=== PATIENT | female | born 1975 | race Asian ===

== ENCOUNTER 2021-04-01 12:01 | Emergency (ER) | payer OTHER, BC ==
[~2021-04-01] VITALS: Ht 154.9 cm; Wt 97.1 kg
[2021-04-01] MEDS ORDERED: LOSA50 PO (12:56)
[2021-04-01] MEDS ORDERED: FURO80 PO (12:57)
[2021-04-01 13:48] LABS: BASOPHILS ABSOLUTE AUTO 0.06 K/mm3 (0.00-0.23); BASOPHILS PERCENT AUTO 1 % (0-2); EOSINOPHILS ABSOLUTE AUTO 0.14 K/mm3 (0.00-0.68); EOSINOPHILS PERCENT AUTO 3 % (0-6); Hematocrit 35.1 % (33.0-51.0); Hemoglobin 11.1 g/dL (11.5-16.0); IMMATURE GRAN ABSOLUTE AUTO 0.02 K/mm3 (0.00-0.10); IMMATURE GRAN PERCENT AUTO 0 % (0-1); LYMPHOCYTES ABSOLUTE AUTO 1.25 K/mm3 (0.84-5.20); LYMPHOCYTES PERCENT AUTO 24 % (21-46); MONOCYTES ABSOLUTE AUTO 0.55 K/mm3 (0.16-1.47); MONOCYTES PERCENT AUTO 11 % (4-13); Mean Corpuscular HGB 26.1 pg (26.0-34.0); Mean Corpuscular HGB Conc 31.6 g/dL (31.5-36.5); Mean Corpuscular Volume 82 fL (80-100); Mean Platelet Volume 10.4 fL (9.1-12.4); NEUTROPHILS ABSOLUTE AUTO 3.13 K/mm3 (1.96-9.15); NEUTROPHILS PERCENT AUTO 61 % (41-73); Platelet Count 316 K/mm3 (150-400); RDW Coefficient Variation 15.3 % (11.7-14.2); RDW Standard Deviation 46.1 fL (35.1-46.3); Red Blood Cell Count 4.26 M/mm3 (3.80-5.20); White Blood Cell Count 5.15 K/mm3 (4.00-11.30)
[2021-04-01 14:10] LABS: Alanine Aminotransfer (ALT/SGP 20 U/L (12-78); Albumin, Blood 2.3 g/dL (3.4-5.0); Albumin/Globulin Ratio 0.6 (0.8-1.8); Alk Phos 83 U/L (50-136); Anion Gap 7 mmol/L (6-16); Aspartate Aminotrans (AST/SGOT 19 U/L (12-37); Bilirubin, Total 0.3 mg/dL (0.1-1.0); Blood Urea Nitrogen 35 mg/dL (8-24); Bun/Creatinine Ratio 20.7 (12.0-20.0); CO2, Blood 21 mmol/L (21-32); Calcium, Blood 7.9 mg/dL (8.5-10.1); Chloride, Blood 109 mmol/L (98-108); Creatinine, Blood 1.69 mg/dL (0.40-1.00); Globulin, Blood 3.9 g/dL (2.2-4.0); Glomerular Filtration Rate 32 (60-); Glucose, Blood 235 mg/dL (70-99); Potassium, Blood 4.1 mmol/L (3.5-5.5); Sodium, Blood 137 mmol/L (136-145); Total Protein, Blood 6.2 g/dL (6.4-8.2); Troponin I <0.015 ng/mL (0.000-0.040)
[2021-04-01] MEDS ORDERED: LOSA25 PO (14:28)
== END 2021-04-01 15:24 | disposition home or self-care (01) ==
LOC: ER 12:01
PROVIDERS: Student in an Organized Health Care Education/Training Program
DX: R07.89 Other chest pain (principal); I12.9 Hypertensive chronic kidney disease with stage 1 through stage 4 chronic kidney disease, or unspecified chronic kidney disease; E11.22 Type 2 diabetes mellitus with diabetic chronic kidney disease; N18.9 Chronic kidney disease, unspecified; I50.9 Heart failure, unspecified; Z79.899 Other long term (current) drug therapy; V49.40XA Driver injured in collision with unspecified motor vehicles in traffic accident, initial encounter
CPT/HCPCS: 71046; 72040; 80053; 84484; 85025; 93005; 93010; 99284-25; A9270

== ENCOUNTER 2021-06-26 18:30 | Observation (INO) | payer BC ==
[~2021-06-26] VITALS: Ht 160 cm; Wt 104.3 kg
[~2021-06-26 18:30] MED LIST: FURO40 PO; LOSA25 PO; LOSA50 PO
[2021-06-26 19:10] LABS: BASOPHILS ABSOLUTE AUTO 0.02 K/mm3 (0.00-0.23); BASOPHILS PERCENT AUTO 0 % (0-2); EOSINOPHILS ABSOLUTE AUTO 0.04 K/mm3 (0.00-0.68); EOSINOPHILS PERCENT AUTO 1 % (0-6); Hematocrit 34.6 % (33.0-51.0); Hemoglobin 11.4 g/dL (11.5-16.0); IMMATURE GRAN ABSOLUTE AUTO 0.03 K/mm3 (0.00-0.10); IMMATURE GRAN PERCENT AUTO 0 % (0-1); LYMPHOCYTES ABSOLUTE AUTO 0.61 K/mm3 (0.84-5.20); LYMPHOCYTES PERCENT AUTO 8 % (21-46); MONOCYTES ABSOLUTE AUTO 0.33 K/mm3 (0.16-1.47); MONOCYTES PERCENT AUTO 4 % (4-13); Mean Corpuscular HGB 26.2 pg (26.0-34.0); Mean Corpuscular HGB Conc 32.9 g/dL (31.5-36.5); Mean Corpuscular Volume 80 fL (80-100); Mean Platelet Volume 10.7 fL (9.1-12.4); NEUTROPHILS ABSOLUTE AUTO 7.12 K/mm3 (1.96-9.15); NEUTROPHILS PERCENT AUTO 87 % (41-73); Platelet Count 398 K/mm3 (150-400); RDW Coefficient Variation 15.3 % (11.7-14.2); RDW Standard Deviation 44.3 fL (35.1-46.3); Red Blood Cell Count 4.35 M/mm3 (3.80-5.20); White Blood Cell Count 8.15 K/mm3 (4.00-11.30)
[2021-06-26 19:43] LABS: Albumin, Blood 2.3 g/dL (3.4-5.0); Albumin/Globulin Ratio 0.6 (0.8-1.8); Bilirubin, Total 0.1 mg/dL (0.1-1.0); Bun/Creatinine Ratio 30.4 (12.0-20.0); Calcium, Blood 8.1 mg/dL (8.5-10.1); Creatinine, Blood 1.81 mg/dL (0.40-1.00); Potassium, Blood 4.4 mmol/L (3.5-5.5); Total Protein, Blood 6.3 g/dL (6.4-8.2)
[2021-06-26] MEDS ORDERED: Aspir 8181 MG PO (20:03)
[2021-06-26] MEDS ORDERED: GLIMEPIRIDE2 M2 PO (20:03)
[2021-06-26] MEDS ORDERED: TRULICITY0.75 MG/01 (20:04)
[2021-06-26] MEDS ORDERED: AMLODIPINE BESY10 MG PO (20:05)
[2021-06-26 21:40] LABS: Influenza A, PCR NEGATIVE (NEGATIVE); Influenza B, PCR NEGATIVE (NEGATIVE); Resp Syncytial Virus, PCR NEGATIVE (NEGATIVE)
[2021-06-26 21:51] LABS: SARS-Cov-2 (COVID-19) PCR, MMC POSITIVE (NEGATIVE)
--- NOTE | 2021-06-26 22:15 | NUR ---
ARRIVED TO ICU AND ACCEPTED INTO ROOM 5. ADMISSION ASSESSMENT COMPLETE. VERY ANXIOUS, CALMS WITH NURSE REASSURANCE. ALL EXPECTED PROCESSES AND EXPLAINTION OF PLANS EXPLAINED BEFORE STARTING.
[2021-06-27 03:57] LABS: Bun/Creatinine Ratio 27.2 (12.0-20.0); Calcium, Blood 8.2 mg/dL (8.5-10.1); Creatinine, Blood 1.84 mg/dL (0.40-1.00); Potassium, Blood 4.9 mmol/L (3.5-5.5)
--- NOTE | 2021-06-27 06:38 | NUR ---
Rested through out night. blood sugar remained stable with D10 infusion. anxiety better this am than when first arrived, up to toilet with assist. stable with ambulation, needs assist due to limited vision.
--- NOTE | 2021-06-27 08:56 | NUR ---
AM NOTE... ASSUMED CARE OF PT AT 0700, PT IS A&Ox4 AND SBA IN THE ROOM. THE PT IS ON A D10 GTT RUNNING AT 100MLS/HR WITH Q1 HR CBGs THE LAST 4 HRS THE PT'S CBGs HAVE BEEN IN THE 130'S. THE PT'S VS ARE STABLE AT THIS TIME. THE PT DENIES ANY SOB OR CHEST PAIN AND IS ON RA. L/S CLEAR T/O DIM IN THE BASES. THE PT IS IND IN THE BED AND WITH ADLs. CALL LIGHT IN REACH WILL CONTINUE TO MONITOR.
--- NOTE | 2021-06-27 14:43 | NUR ---
PT UPDATE... D10 DRIP STOPPED PER PROVIDER'S ORDER. WILL CONTINUE TO MONITOR.
--- NOTE | 2021-06-27 18:18 | NUR ---
SHIFT SUMMARY... NO ACUTE NEGATIVE CHANGES NOTED THIS SHIFT. THE PT HAS BEEN HYPERTENSIVE AND MEDICATED x2 PER EMAR WITH GOOD RESULTS, THE PT'S OTHER VS ARE STABLE. THE D10 DRIP WAS STOPPED PER ORDERS AND CBGs HAVE BEEN STABLE. PER PROVIDER CONTINUE TO CHECK THE CBGs Q4 HRS UNTIL 2200 THEN IF STABLE GO TO Q6 CBG CHECKS. THE PT HAS BEEN UP TO THE TOILET TO VOID WITH MIN ASSIST. SHE HAS BEEN EATING HER MEALS AND DENIES ANY COVID SYMPTOMS. CALL LIGHT IN REACH WILL CONTINUE TO MONITOR UNTIL REPORT IS GIVEN TO ONCOMING RN.
--- NOTE | 2021-06-27 20:00 | NUR ---
Assumed care after report recv'd Assessment complete. Blood pressure elevated, will give pm meds and recheck. anxiety better this evening. Denies needs or complaints at this time.
--- NOTE | 2021-06-27 21:15 | NUR ---
Blood sugar 116. Advised patient will be changing to every 6 hours for blood sugar checks. Educated on calling for nurse if any hypoglycemic systems and will check as needed. Verbalizes understanding. Denies needs at this time.
--- NOTE | 2021-06-27 21:48 | NUR ---
REPORT RECIEVED FROM JOVITA COMPUTATIONAL SCIENTIST AND AWAITING PT T/F TO ROOM 332.
--- NOTE | 2021-06-27 21:55 | NUR ---
Report given to Leydi LAWS, transferred via wheelchair to room 332.
--- NOTE | 2021-06-27 22:05 | NUR ---
PT T/F'D TO ROOM 332 AT 2200 VIA W/C. SHE'S A/OX4, IS SBA OOB AND WAS ORIENTED TO ROOM AND CALL SYSTEM. VSS/AFEBRILE. PT DENIED NEEDS/COMPLAINTS AND IS SITTING IN BED WATCHING TV AT THIS TIME. Q6H CBG'S IN PROGRESS. WCTM.
--- NOTE | 2021-06-28 03:34 | NUR ---
SUMMARY: PT T/F'D FROM ICU AT 2200. THIS RN AGREED TO QUALITY ASSURANCE PRACTICE MANAGER'S NOCTE SHIFT ASSESSMENT FINDINGS. SHE'S A/OX4, SPECIFIES NEEDS AND IS SBA OOB. TAB PLACED TO CALL BUTTON D/T VISUAL DEFICITS SLIGHTLY WORSE FROM BASELINE R/T CURRENT ILLNESS. Q6H CBG MONITORING IN PROGRESS (LAST WAS 107) AND PT SEEMS STABLE AT THIS TIME. SHE'S AWARE TO ALERT STAFF IF S/S HYPOGLYCEMIA. PT REMAINS IN COVID ISO D/T TESTING (+) IN ER DESPITE BEING ASYMPTOMATIC OF DISTRESS. SPO2 WNL ON RA, LS CLEAR T/O AND SLIGHT CONGESTION OBSERVED. SHE'S POSSIBLE D/C TOMORROW IF CBG'S REMAIN WNL, POISON CONTROL IS FOLLOWING PT UNTIL D/C. SEE NURSING NOTIFICATION RX FOR DETAILS IF HYPOGLYCEMIA REMAINS AN ISSUE. PT DENIED COMPLAINTS. NO ACUTE CHANGES. VSS/AFEBRILE. WCTM AND REPORT TO DAY RN.
[2021-06-28 06:34] LABS: Albumin, Blood 1.9 g/dL (3.4-5.0); Anion Gap 7 mmol/L (6-16); Blood Urea Nitrogen 48 mg/dL (8-24); Bun/Creatinine Ratio 21.9 (12.0-20.0); CO2, Blood 18 mmol/L (21-32); Calcium, Blood 8.5 mg/dL (8.5-10.1); Chloride, Blood 113 mmol/L (98-108); Creatinine, Blood 2.19 mg/dL (0.40-1.00); Glomerular Filtration Rate 24 (60-); Glucose, Blood 99 mg/dL (70-99); Phosphorus, Blood 3.8 mg/dL (2.5-4.9); Potassium, Blood 4.8 mmol/L (3.5-5.5); Sodium, Blood 138 mmol/L (136-145)
--- NOTE | 2021-06-28 19:08 | NUR ---
PATIENT A/O X4. AMBULATES WELL IN ROOM. BG HAS BEEN IN THE 100'S FOR SHIFT.LAST BLOOD GLUCOSE CHECK 127. SPOKE WITH POISON CONTROL COUPLE TIMES ABOUT THIS PATIENT.POSSIBLE DISCHARGE TOMORROW IF BG REMAINS WNL
--- NOTE | 2021-06-29 04:46 | NUR ---
PT WAS A/O X4, STABLE VITAL SIGNS, NO ACUTE CHANGES. PT DENIES ANY PAIN
[2021-06-29 09:34] LABS: Bun/Creatinine Ratio 19.6 (12.0-20.0); Calcium, Blood 8.7 mg/dL (8.5-10.1); Creatinine, Blood 1.99 mg/dL (0.40-1.00); Potassium, Blood 4.7 mmol/L (3.5-5.5)
[2021-06-29] MEDS ORDERED: ATOR40TA PO (14:03)
[2021-06-29] MEDS ORDERED: ASCO500 PO (14:03)
[2021-06-29] MEDS ORDERED: ZINC220 PO (14:04)
[2021-06-29] MEDS ORDERED: Vitamin D1000 UNI1 PO (14:04)
--- NOTE | 2021-06-29 14:47 | NUR ---
I met with the patient in her room this morning to discuss applying for OHP. Patient agreed to apply as her BCBS coverage will be ending soon. We did the OHP application and it is pending due to needing citizenship verification. Pt is aware of this and acknowledges that she needs to bring her permanent residency visa into [facility] for follow-up. Per chart review with Dr. Carrasquillo, pt is appropriate for discharge and pt denies barriers to discharge. Pt will be calling her boyfriend to help with discharge transportation. A hospital follow-up is already scheduled with Dr. Carrasquillo on July 06 @ 02:00PM.
--- NOTE | 2021-06-29 18:01 | NUR ---
PT A/O X4. NO ACUTE CHANGES DURING SHIFT. PT AMBULATES WELL TO THE BATHROOM. DENIES PAIN. ALL MEDS GIVEN PER SEP. PT HAS BEEN DISCHARGED. DISCHARGE INSTRUCTIONS GIVEN. REVIEWED ALL MEDS INCLUDING NEW ONES WITH PT, COMFIRMED PHARMACY WITH PATIENT.
== END 2021-06-29 16:50 | disposition home or self-care (01) ==
LOC: ER 18:30 → ICUE 18:31 → ICUW 18:31 → ICUE 21:49 → MEDS 06-27 22:00
PROVIDERS: Emergency Medicine; Internal Medicine; Physician Assistant; ADMIT Internal Medicine
DX: E11.649 Type 2 diabetes mellitus with hypoglycemia without coma (principal); U07.1 COVID-19; I16.0 Hypertensive urgency; I13.0 Hypertensive heart and chronic kidney disease with heart failure and stage 1 through stage 4 chronic kidney disease, or unspecified chronic kidney disease; N18.4 Chronic kidney disease, stage 4 (severe); E11.22 Type 2 diabetes mellitus with diabetic chronic kidney disease; I50.30 Unspecified diastolic (congestive) heart failure; N17.9 Acute kidney failure, unspecified; H35.30 Unspecified macular degeneration; D21.9 Benign neoplasm of connective and other soft tissue, unspecified; E66.01 Morbid (severe) obesity due to excess calories; Z68.41 Body mass index [BMI] 40.0-44.9, adult; Z79.84 Long term (current) use of oral hypoglycemic drugs; Z87.891 Personal history of nicotine dependence
CPT/HCPCS: 0241U; 36415; 80048; 80053; 80069; 82947; 85025; 90686; 96372; 96374; 96375; 99284; A9270; G0008; G0378; J0360; J1644; J2354; J2405

== ENCOUNTER → 2021-07-13 | Outpatient (CLI) | payer BC, OTHER ==
[~2021-07-13] MED LIST changes: +AMLODIPINE BESY10 MG PO; +ASCO500 PO; +ATOR40TA PO; +Aspir 8181 MG PO; +GLIMEPIRIDE2 M2 PO; +TRULICITY0.75 MG/01; +Vitamin D1000 UNI1 PO; +ZINC220 PO
== END | disposition home or self-care (01) ==
LOC: LAB SHORT 15:09
DX: L02.91 Cutaneous abscess, unspecified (principal)
CPT/HCPCS: 87070; 87077; 87147; 87186; 87205

== ENCOUNTER → 2022-11-16 | Outpatient (CLI) | payer OTHER | END | disposition home or self-care (01) | LOC: LAB SHORT 12:50 → LAB 12:50 | DX: D51.8 Other vitamin B12 deficiency anemias (principal) | CPT/HCPCS: 82607; 82746 ==

== ENCOUNTER → 2023-02-01 | Outpatient (CLI) | payer OTHER | LOC: LAB 12:16 → LAB SHORT 12:16 | DX: N91.2 Amenorrhea, unspecified (principal) | CPT/HCPCS: 84703 ==

== ENCOUNTER → 2023-02-15 | Outpatient (CLI) | payer OTHER ==
[2023-02-15 19:20] LABS: Albumin, Blood 3.6 g/dL (3.4-5.0); Bilirubin, Total 0.3 mg/dL (0.1-1.0); Bun/Creatinine Ratio 14.3 (12.0-20.0); Calcium, Blood 10.5 mg/dL (8.5-10.1); Creatinine, Blood 5.94 mg/dL (0.40-1.00); Globulin, Blood 3.5 g/dL (2.2-4.0); Phosphorus, Blood 7.3 mg/dL (2.5-4.9); Potassium, Blood 3.3 mmol/L (3.5-5.5); Total Protein, Blood 7.1 g/dL (6.4-8.2)
== END ==
LOC: LAB SHORT 17:04 → LAB 17:04
PROVIDERS: Internal Medicine Hematology & Oncology
DX: E11.22 Type 2 diabetes mellitus with diabetic chronic kidney disease (principal); N18.4 Chronic kidney disease, stage 4 (severe); D50.0 Iron deficiency anemia secondary to blood loss (chronic)
CPT/HCPCS: 80053; 84100

== ENCOUNTER → 2023-02-21 | Outpatient (CLI) | payer OTHER | END | disposition home or self-care (01) | LOC: LAB 12:45 → LAB SHORT 12:45 | DX: E53.8 Deficiency of other specified B group vitamins (principal) | CPT/HCPCS: 82607; 82746 ==

== ENCOUNTER 2023-03-15 14:44 | Inpatient (IN) | payer OTHER ==
[~2023-03-15] VITALS: Ht 154.9 cm; Wt 92.1 kg
[~2023-03-15 14:44] MED LIST changes: +BENZ100A PO; +CALC.25 PO; +DILT180 PO; +DILT60ER PO; +Doxycycline Mo100 M1 PO; +ERGO50000 PO; +HYDRA50 PO; +RENVELA800 MG PO; +SODBIC650 PO
[2023-03-15 17:34] VITALS: BP 186/71
[2023-03-15 17:52] LABS: BASOPHILS ABSOLUTE AUTO 0.07 K/mm3 (0.00-0.23); BASOPHILS PERCENT AUTO 1 % (0-2); EOSINOPHILS ABSOLUTE AUTO 0.47 K/mm3 (0.00-0.68); EOSINOPHILS PERCENT AUTO 5 % (0-6); Hematocrit 27.5 % (33.0-51.0); Hemoglobin 9.2 g/dL (11.5-16.0); IMMATURE GRAN ABSOLUTE AUTO 0.06 K/mm3 (0.00-0.10); IMMATURE GRAN PERCENT AUTO 1 % (0-1); LYMPHOCYTES ABSOLUTE AUTO 1.06 K/mm3 (0.84-5.20); LYMPHOCYTES PERCENT AUTO 11 % (21-46); MONOCYTES ABSOLUTE AUTO 1.07 K/mm3 (0.16-1.47); MONOCYTES PERCENT AUTO 12 % (4-13); Mean Corpuscular HGB 31.2 pg (26.0-34.0); Mean Corpuscular HGB Conc 33.5 g/dL (31.5-36.5); Mean Corpuscular Volume 93 fL (80-100); Mean Platelet Volume 9.7 fL (9.1-12.4); NEUTROPHILS ABSOLUTE AUTO 6.53 K/mm3 (1.96-9.15); NEUTROPHILS PERCENT AUTO 71 % (41-73); Platelet Count 335 K/mm3 (150-400); RDW Coefficient Variation 13.7 % (11.7-14.2); RDW Standard Deviation 46.3 fL (35.1-46.3); Red Blood Cell Count 2.95 M/mm3 (3.80-5.20); White Blood Cell Count 9.26 K/mm3 (4.00-11.30)
--- NOTE | 2023-03-15 17:56 | NUR ---
ADMISSION AND SHIFT SUMMARY PATIENT ADMITTED TO MEDICAL FLOOR. PATIENT UNABLE TO GET DIALYSIS AT [facility] BECAUSE RESULTS NOT BACK RELATED TO CULTURES ON LUNG MASS. PATIENT STATES SHE HAS NOT HAD DIALYSIS SINCE DISCHARGE. PATIENT ALERT AND INTERACTIVE. POWERGLIDE PLACED ON ARRIVAL TO MEDICAL FLOOR. LABS DRAWN AND AWAITING RESULTS TO BE CALLED TO DR. GLEASON. PATIENT AMBULATING INDEPENDENTLY IN THE ROOM. VASCATH ON L CHEST WALL. PATIENT STATES THAT SHE HAS HAD HER VEIN MAPPING FOR HER SHUNT BUT DOES NOT HAVE ANYTHING SCHEDULED YET. WILL CONTACT DR GLEASON WHEN LAB RESULTS COME BACK. PATIENT HAS OCCASIONAL COUGH BUT NO SPUTUM AT THIS TIME.
[2023-03-15] MEDS ORDERED: HYDRA50 PO (18:15)
[2023-03-15] MEDS ORDERED: SEVEC800 PO (18:15)
[2023-03-15] MEDS ORDERED: ERGO50000 PO (18:16)
[2023-03-15] MEDS ORDERED: FERSU300 PO (18:16)
[2023-03-15] MEDS ORDERED: SODBIC650 PO (18:17)
[2023-03-15] MEDS ORDERED: FURO40 PO (18:17)
[2023-03-15 18:18] LABS: Magnesium, Blood 2.5 mg/dL (1.6-2.4)
[2023-03-15 18:21] LABS: Albumin, Blood 3.3 g/dL (3.4-5.0); Albumin/Globulin Ratio 0.8 (0.8-1.8); Bilirubin, Total 0.3 mg/dL (0.1-1.0); Bun/Creatinine Ratio 14.3 (12.0-20.0); Calcium, Blood 10.5 mg/dL (8.5-10.1); Creatinine, Blood 6.14 mg/dL (0.40-1.00); Globulin, Blood 4.1 g/dL (2.2-4.0); Potassium, Blood 4.2 mmol/L (3.5-5.5); Total Protein, Blood 7.4 g/dL (6.4-8.2)
[2023-03-15 18:24] LABS: Phosphorus, Blood 8.8 mg/dL (2.5-4.9)
[2023-03-15 19:42] VITALS: BP 194/60
[2023-03-16] VITALS (19 sets, daily range): BP systolic 129–193; BP diastolic 48–99
--- NOTE | 2023-03-16 04:04 | NUR ---
SHIFT SUMMARY; NO ACUTE CHANGES OVERNIGHT. THE PT IS AXO X4 AND INDEPENDENT IN THE ROOM. THE PT HAS BEEN SLEEPING FOR THE DURATION OF THE NIGHT. THE PT HAS BEEN NPO SINCE 0300 THIS AM IN PREPERATION FOR A POSSIBLE BRONCHOSCOPY. DIALYSIS IS PLANNED FOR THIS AM WELL. THE PT DENIES ANY CHEST PAIN/PRESSURE, SOB, PAIN OR N/V THIS SHIFT. CURRENTLY THE PT IS SLEEPING IN BED WITH THE BED IN THE LOWEST POSITION AND THE CALL LIGHT AT BEDSIDE. FIRE SAFETY MAINTAINED T/O THE NIGHT.
[2023-03-16 05:43] LABS: Hematocrit 24.5 % (33.0-51.0); Hemoglobin 8.2 g/dL (11.5-16.0)
[2023-03-16 05:58] LABS: Magnesium, Blood 2.2 mg/dL (1.6-2.4)
[2023-03-16 06:45] LABS: Albumin, Blood 2.8 g/dL (3.4-5.0); Anion Gap 12 mmol/L (6-16); Blood Urea Nitrogen 92 mg/dL (8-24); Bun/Creatinine Ratio 15.6 (12.0-20.0); CO2, Blood 19 mmol/L (21-32); Chloride, Blood 107 mmol/L (98-108); Creatinine, Blood 5.89 mg/dL (0.40-1.00); Glomerular Filtration Rate 8 (60-); Glucose, Blood 120 mg/dL (70-99); Phosphorus, Blood 8.6 mg/dL (2.5-4.9); Potassium, Blood 4.3 mmol/L (3.5-5.5); Sodium, Blood 138 mmol/L (136-145)
--- NOTE | 2023-03-16 16:34 | NUR ---
03/16/23 1634 Radha Kelly PRIOR TO START OF PROCEDURE History, Chart, Medications and Allergies reviewed before start of procedure.NUMBING TO THROAT DONE
--- NOTE | 2023-03-16 18:12 | NUR ---
DAYSHIFT SUMMARY Patient NPO, bronchscopy planned for the afternoon. PO meds held. Infection prevent RN instructed RN to place patient on airborne precautions to r/o TB. Dialysis done at bedside. Patient had procedure this afternoon, SBP >177, evening midodrine held. Patient tired but denies pain or nausea. Will continue plan of care, waiting for AFB to result.
[2023-03-16 19:52] LABS: Acinetobacter baumannii DNA Not Detected copy/mL (NOT DETECT); Adenovirus DNA Not Detected (NOT DETECT); Chlamydia pneumonia Not Detected (NOT DETECT); Enterobacter cloacae DNA Not Detected copy/mL (NOT DETECT); Escherichia coli DNA Not Detected copy/mL (NOT DETECT); Haemophilus influenzae DNA Not Detected copy/mL (NOT DETECT); Human Coronavirus RNA Not Detected (NOT DETECT); Human Metapneumovirus RNA Not Detected (NOT DETECT); Influenza virus A RNA Not Detected (NOT DETECT); Influenza virus B RNA Not Detected (NOT DETECT); Klebsiella aerogenes DNA Not Detected copy/mL (NOT DETECT); Klebsiella oxytoca DNA Not Detected copy/mL (NOT DETECT); Klebsiella pneumoniae DNA Not Detected copy/mL (NOT DETECT); Legionella pneumophila Not Detected (NOT DETECT); Moraxella catarrhalis DNA Not Detected copy/mL (NOT DETECT); Mycoplasma pneumoniae Not Detected (NOT DETECT); Parainfluenza virus RNA Not Detected (NOT DETECT); Proteus sp DNA Not Detected copy/mL (NOT DETECT); Pseudomonas aeruginosa DNA Not Detected copy/mL (NOT DETECT); Respiratory syncytial Vir RNA Not Detected (NOT DETECT); Rhinovirus+Enterovirus RNA Not Detected (NOT DETECT); Serratia marcescens DNA Not Detected copy/mL (NOT DETECT); Staphylococcus aureus DNA Not Detected copy/mL (NOT DETECT); Streptococcus agalactiae DNA Not Detected copy/mL (NOT DETECT); Streptococcus pneumoniae DNA Not Detected copy/mL (NOT DETECT); Streptococcus pyogenes DNA Not Detected copy/mL (NOT DETECT)
[2023-03-17] VITALS (18 sets, daily range): BP systolic 98–173; BP diastolic 52–88
[2023-03-17 05:39] LABS: Hematocrit 26.8 % (33.0-51.0)
[2023-03-17 05:59] LABS: Albumin, Blood 2.8 g/dL (3.4-5.0); Anion Gap 8 mmol/L (6-16); Blood Urea Nitrogen 57 mg/dL (8-24); Bun/Creatinine Ratio 13.3 (12.0-20.0); CO2, Blood 27 mmol/L (21-32); Calcium, Blood 9.5 mg/dL (8.5-10.1); Chloride, Blood 101 mmol/L (98-108); Creatinine, Blood 4.27 mg/dL (0.40-1.00); Glomerular Filtration Rate 12 (60-); Glucose, Blood 107 mg/dL (70-99); Magnesium, Blood 2.2 mg/dL (1.6-2.4); Phosphorus, Blood 6.8 mg/dL (2.5-4.9); Potassium, Blood 3.8 mmol/L (3.5-5.5); Sodium, Blood 136 mmol/L (136-145)
--- NOTE | 2023-03-17 06:20 | NUR ---
SHIFT SUMMARY NO EVENTS OVERNIGHT, PT SLEPT WITH NO COMPLAINTS. AROUND 0610 PT REPORTED SOME CHEST PAIN WHICH SHE STATED WAS REALLY NEAR HER BACK LEFT SCAPULA. SHE STATED THIS PAIN IS ONLY PRESENT WHEN SHE TRIES VERY HARD TO TAKE A DEEP BREATH PT STATED SHE FEELS LIKE IT WAS FROM COUGHING TOO HARD. WILL CONTINUE TO MONITOR. Q1H FIRE SAFETY CHECKS COMPLETED, NO IGNITION SOURCES FOUND.
--- NOTE | 2023-03-17 18:21 | NUR ---
SHIFT SUMMARY: KRISTY IS A&OX4. VSS, NO ACUTE EVENTS THIS SHIFT. SHE DID RECEIVE DIALYSIS IN THE ROOM THIS MORNING, CHEST X-RAY OBTAINED AFTERWARDS. SHE IS TOLERATING PO INTAKE WELL, MAINTAINING SATURATIONS ORA, AND IS ABLE TO MAKE HER NEEDS KNOWN. SHE IS LYING IN BED WITH THE CALL LIGHT IN REACH. WCTM UNTIL REPORT IS GIVEN TO COMPENSATION ASSOCIATE RN.
[2023-03-18 06:04] LABS: BASOPHILS ABSOLUTE AUTO 0.06 K/mm3 (0.00-0.23); BASOPHILS PERCENT AUTO 1 % (0-2); EOSINOPHILS ABSOLUTE AUTO 0.47 K/mm3 (0.00-0.68); EOSINOPHILS PERCENT AUTO 5 % (0-6); Hematocrit 26.5 % (33.0-51.0); Hemoglobin 8.9 g/dL (11.5-16.0); IMMATURE GRAN ABSOLUTE AUTO 0.04 K/mm3 (0.00-0.10); IMMATURE GRAN PERCENT AUTO 0 % (0-1); LYMPHOCYTES ABSOLUTE AUTO 1.04 K/mm3 (0.84-5.20); LYMPHOCYTES PERCENT AUTO 11 % (21-46); MONOCYTES ABSOLUTE AUTO 1.32 K/mm3 (0.16-1.47); MONOCYTES PERCENT AUTO 14 % (4-13); Mean Corpuscular HGB 31.1 pg (26.0-34.0); Mean Corpuscular HGB Conc 33.6 g/dL (31.5-36.5); Mean Corpuscular Volume 93 fL (80-100); Mean Platelet Volume 9.6 fL (9.1-12.4); NEUTROPHILS ABSOLUTE AUTO 6.23 K/mm3 (1.96-9.15); NEUTROPHILS PERCENT AUTO 68 % (41-73); Platelet Count 299 K/mm3 (150-400); RDW Coefficient Variation 13.2 % (11.7-14.2); RDW Standard Deviation 45.3 fL (35.1-46.3); Red Blood Cell Count 2.86 M/mm3 (3.80-5.20); White Blood Cell Count 9.16 K/mm3 (4.00-11.30)
--- NOTE | 2023-03-18 06:06 | NUR ---
SHIFT SUMMARY NO ACUTE EVENTS OVERNIGHT. Q1H FIRE SAFETY CHECKS COMPLETED, NO IGNITION SOURCES FOUND.
[2023-03-18 06:27] LABS: Magnesium, Blood 2.1 mg/dL (1.6-2.4)
[2023-03-18 06:28] LABS: Albumin, Blood 2.8 g/dL (3.4-5.0); Albumin/Globulin Ratio 0.7 (0.8-1.8); Bilirubin, Total 0.2 mg/dL (0.1-1.0); Calcium, Blood 9.6 mg/dL (8.5-10.1); Creatinine, Blood 3.62 mg/dL (0.40-1.00); Globulin, Blood 3.9 g/dL (2.2-4.0); Phosphorus, Blood 4.8 mg/dL (2.5-4.9); Total Protein, Blood 6.7 g/dL (6.4-8.2)
[2023-03-18 07:50] VITALS: BP 151/70
[2023-03-18 12:34] VITALS: BP 161/80
[2023-03-18 16:34] VITALS: BP 160/79
--- NOTE | 2023-03-18 17:22 | NUR ---
SHIFT SUMMARY: KRISTY IS A&OX4. VSS, NO ACUTE EVENTS THIS SHIFT. SHE DID COMPLAIN OF A SORE THROAT AND CHEST TIGHTNESS FOR WHICH THE HOSPITALIST ORDERED SOME LOZENGES AND GAVE PERMISSION FOR PT TO USE O2 VIA NC FOR COMFORT, PT REPORTED IMPROVEMENT IN HER SYMPTOMS AFTER APPLICATION OF O2. SHE IS INDEPENDENT IN THE ROOM, TOLERATING PO INTAKE WELL, AND USES THE CALL LIGHT APPROPRIATELY. SHE IS SITTING UP IN BED WITH THE CALL LIGHT IN REACH. WCTM UNTIL REPORT IS GIVEN TO CATARACT LENS GENERATOR RN.
[2023-03-18 19:59] VITALS: BP 169/81
--- NOTE | 2023-03-18 23:06 | NUR ---
PHYSICIAN CONTACT CALL MADE TO DR. SESAY. PT REQUESTING TYLENOL.
[2023-03-19] VITALS (18 sets, daily range): BP systolic 121–1898; BP diastolic 53–91
--- NOTE | 2023-03-19 05:11 | NUR ---
SHIFT SUMMARY PT PLEASANT & COOPERATIVE T/O SHIFT. SLIGHT TEMP OVERNIGHT OF 100.6. TREATED WITH TYLENOL ORDERED. PT STATES SHE FEELS BETTER THIS MORNING. SLEPT MOST OF THE NIGHT. CALL LIGHT IN REACH. LABS DRAWN VIA LINE. PT RESTING IN BED. COFFEE PROVIDED. DENIES OTHER NEEDS AT THIS TIME.
[2023-03-19 05:34] LABS: Hematocrit 26.4 % (33.0-51.0); Hemoglobin 8.8 g/dL (11.5-16.0)
[2023-03-19 06:08] LABS: Albumin, Blood 2.8 g/dL (3.4-5.0); Anion Gap 8 mmol/L (6-16); Blood Urea Nitrogen 60 mg/dL (8-24); Bun/Creatinine Ratio 13.5 (12.0-20.0); CO2, Blood 24 mmol/L (21-32); Chloride, Blood 102 mmol/L (98-108); Creatinine, Blood 4.44 mg/dL (0.40-1.00); Glomerular Filtration Rate 12 (60-); Glucose, Blood 114 mg/dL (70-99); Magnesium, Blood 2.1 mg/dL (1.6-2.4); Phosphorus, Blood 5.2 mg/dL (2.5-4.9); Potassium, Blood 4.2 mmol/L (3.5-5.5); Sodium, Blood 134 mmol/L (136-145)
[2023-03-19 10:45] LABS: Influenza A, PCR NEGATIVE (NEGATIVE); Influenza B, PCR NEGATIVE (NEGATIVE); Resp Syncytial Virus, PCR NEGATIVE (NEGATIVE); SARS-Cov-2 (COVID-19) PCR, MMC NEGATIVE (NEGATIVE)
--- NOTE | 2023-03-19 16:18 | NUR ---
After receiving a request from Dr. Sim to have spiritual care visit the patient, I visted the patient. I found her tearful as she was completing her dialysis session. She explains about her grief, her mental/emotional struggles and her fears about the future. She states that all her human-ness is showing as she feels so isolated and raw. I normalize her feelings and fears as I listen empathically and provided spiritual direction. She is easily encouraged by theological insights as we explore her Zoroastrian, Mu-Ism and buddhism beleifs. I provide prayer which the patient welcomes. She admits to feeling more centered and uplifted by our conversation and displays evidence of greater peace. Spiritual care will remain available to patient and family.
--- NOTE | 2023-03-19 18:22 | NUR ---
PATIENT IS ALERT AND ORIENTED AND COOPERATIVE WITH CARE. ON RA. C/O GENERAL ACHES TODAY, MEDICATED PER EMAR. AFEBRILE THIS SHIFT. INDEPENDENT IN HER ROOM. DIALYSIS WAS COMPLETED IN THE ROOM THIS AFTERNOON. DR. JONAS SPOKE WITH THE PATIENT REGARDING HER MICROBIOLOGY RESULTS THIS AFTERNOON. WILL CONTINUE TO MONITOR
[2023-03-20] VITALS (10 sets, daily range): BP systolic 145–186; BP diastolic 52–83
[2023-03-20 05:14] LABS: Hematocrit 26.3 % (33.0-51.0); Hemoglobin 8.7 g/dL (11.5-16.0)
[2023-03-20 05:20] LABS: Magnesium, Blood 2.1 mg/dL (1.6-2.4)
[2023-03-20 05:21] LABS: Albumin, Blood 2.7 g/dL (3.4-5.0); Anion Gap 7 mmol/L (6-16); Blood Urea Nitrogen 41 mg/dL (8-24); Bun/Creatinine Ratio 12.1 (12.0-20.0); CO2, Blood 27 mmol/L (21-32); Calcium, Blood 9.8 mg/dL (8.5-10.1); Chloride, Blood 98 mmol/L (98-108); Glomerular Filtration Rate 16 (60-); Glucose, Blood 134 mg/dL (70-99); Phosphorus, Blood 4.4 mg/dL (2.5-4.9); Sodium, Blood 132 mmol/L (136-145)
--- NOTE | 2023-03-20 06:09 | NUR ---
SHIFT SUMMARY PT IN ISO FOR R/O TB. AWAITING PCR SEND OUT TESTING FOR RESTUTS. AROUND 0250 AM PT WOKE UP FEELING COLD, HAVING A HEADACHE, AND NAUSEOUS. TEMP TAKEN OF 99.2. TEA ALSO PROVIDED FOR NAUSEA. PT REFUSED A SHOWER EARLIER IN THE SHIFT. SHE IS CONCERNED ABOUT DAMAGING HER PERMACATH. NO OTHER ACUTE CHANGES IN ASSESMENT AT THIS TIME. VS REVIEWED. CALL LIGHT IN REACH. DENIES OTHER NEEDS AT THIS TIME.
--- NOTE | 2023-03-20 12:20 | NUR ---
Pt. is awake and welcomes my visit. Pt. is pleasant but displays evidence of anxiety regarding the supportive relationships in her life. Listen with empathy and a a calming presence. Pt. displays evidence of trust in her spiritual support. Pt. also verbalizes concerns and negative outcomes. Pastoral international student counselor is given, and self care is encouraged. Pt. displayed evidence of agreement and hope. Prayed with Pt. Pt. verbalized gratitude for the spiritual care visit.
[2023-03-21] VITALS (19 sets, daily range): BP systolic 125–190; BP diastolic 48–115
--- NOTE | 2023-03-21 04:36 | NUR ---
SHIFT SUMMARY REPORT RECEIVED VERIFIED, PT A/O STATES SHE IS LONELY IN THE ROOM FEELING VERY ISOLATED SO I MADE EFFORT TO STAY AND CONVERSE. PT STATED SHE FELT A FEVER COMING AND SHE WAS RIGHT, I MEDICATED PER SEP. PT INDEPENDANT IN ROOM. RIGHT CHEST WALL DIALYSIS CATH INTACT AND POWER GLIDE LORI FLUSHED WITH BLOOD RETURN. PT MEDICATED FOR HEADACHE AND IS NOW SLEEPING, AWAITING BLOOD DRAW.
[2023-03-21 05:44] LABS: Hematocrit 25.9 % (33.0-51.0); Hemoglobin 8.6 g/dL (11.5-16.0)
[2023-03-21 06:10] LABS: Magnesium, Blood 2.2 mg/dL (1.6-2.4)
[2023-03-21 06:11] LABS: Albumin, Blood 2.7 g/dL (3.4-5.0); Anion Gap 8 mmol/L (6-16); Blood Urea Nitrogen 57 mg/dL (8-24); CO2, Blood 25 mmol/L (21-32); Calcium, Blood 10.1 mg/dL (8.5-10.1); Chloride, Blood 101 mmol/L (98-108); Creatinine, Blood 4.39 mg/dL (0.40-1.00); Glomerular Filtration Rate 12 (60-); Glucose, Blood 134 mg/dL (70-99); Phosphorus, Blood 5.9 mg/dL (2.5-4.9); Potassium, Blood 3.8 mmol/L (3.5-5.5); Sodium, Blood 134 mmol/L (136-145)
--- NOTE | 2023-03-21 07:30 | NUR ---
ASSUMED CARE: PT RESTING QUIETLY IN BED, ON RA. NO ACUTE NEEDS OR CONCERNS AT THIS TIME.
--- NOTE | 2023-03-21 12:46 | NUR ---
Upon receiving a request for spiritual care, I visited the patient. She explains about her challenging relationship with Raya her [id number] and so we discuss paths forward for patient to stay positive, have healthy boundaries and maintain a spiritual quest that is meaningful and keeps her centered. She also shares personal stories and the more specific areas of mental/emotional anguish. I normalize her feelings and fears and provide therapeutic listening, pastoral crisis counselor and prayer. PAtient also mentioned the desire to partake in communion. I tell her that I will have Technical Research Scientist Mike follow up with her which brought a smile. Patient responded well to all interventions and displayed evidence of being comforted and eased in her thought proccess. Spiritual care will remain available
--- NOTE | 2023-03-21 12:50 | NUR ---
INFECTION CONTROL CALLED AND STATED THAT PT'S PCR CAME BACK POSITIVE FOR TB. CALL TO DR OVALLE WHO STATES SHE WILL CALL HEALTH DEPARTMENT FOR FURTHER INSTRUCTION THEN WILL CALL PT DIRECTLY
--- NOTE | 2023-03-21 14:50 | NUR ---
DIALYSIS NURSE AT BEDSIDE
--- NOTE | 2023-03-21 14:52 | NUR ---
"Spiritual Care | Communion - Pt. Request Pt. is sitting up in her bed awake and welcomes my visit. Pt. had requested receiving communion earlier in the day. Confirmed with Pt. that she was requesting a non-sikhism communion. Pt. verbalized that it was her desire to do so. Communion elements are prepared and words of institution are given. Pt. verbalized gratitude for communion. Pt. continued updating this electric fork operator regarding the challenging relationships in her life. Pt. was unsettled by the delay in her in-room dialysis. As this electric fork operator departed, dialysis arrived."
--- NOTE | 2023-03-21 18:31 | NUR ---
SHIFT SUMMARY: PT'S PCR CAME BACK POSITIVE FOR TB. DR OVALLE CALLED PT AND RELAYED THIS NEWS TO HER. PT BECAME EMOTIONAL. DIALYSIS NURSE AT BEDSIDE. PT AWAITING COMPLETION OF DIALYSIS BEFORE EATING DINNER AND THEREFORE WAITING FOR RENVELA. DENIES OTHER NEEDS OR CONCERNS AT THIS TIME.
[2023-03-22 04:54] VITALS: BP 138/69
[2023-03-22 05:05] LABS: BASOPHILS ABSOLUTE AUTO 0.04 K/mm3 (0.00-0.23); BASOPHILS PERCENT AUTO 0 % (0-2); EOSINOPHILS ABSOLUTE AUTO 0.33 K/mm3 (0.00-0.68); EOSINOPHILS PERCENT AUTO 3 % (0-6); Hematocrit 26.3 % (33.0-51.0); Hemoglobin 8.7 g/dL (11.5-16.0); IMMATURE GRAN ABSOLUTE AUTO 0.03 K/mm3 (0.00-0.10); IMMATURE GRAN PERCENT AUTO 0 % (0-1); LYMPHOCYTES ABSOLUTE AUTO 0.78 K/mm3 (0.84-5.20); LYMPHOCYTES PERCENT AUTO 7 % (21-46); MONOCYTES ABSOLUTE AUTO 1.08 K/mm3 (0.16-1.47); MONOCYTES PERCENT AUTO 10 % (4-13); Mean Corpuscular HGB 30.9 pg (26.0-34.0); Mean Corpuscular HGB Conc 33.1 g/dL (31.5-36.5); Mean Corpuscular Volume 93 fL (80-100); Mean Platelet Volume 9.5 fL (9.1-12.4); NEUTROPHILS PERCENT AUTO 79 % (41-73); Platelet Count 280 K/mm3 (150-400); RDW Coefficient Variation 12.7 % (11.7-14.2); RDW Standard Deviation 43.4 fL (35.1-46.3); Red Blood Cell Count 2.82 M/mm3 (3.80-5.20); White Blood Cell Count 10.56 K/mm3 (4.00-11.30)
[2023-03-22 05:32] LABS: Magnesium, Blood 1.9 mg/dL (1.6-2.4)
[2023-03-22 05:44] LABS: Albumin, Blood 2.9 g/dL (3.4-5.0); Anion Gap 6 mmol/L (6-16); Blood Urea Nitrogen 26 mg/dL (8-24); Bun/Creatinine Ratio 9.4 (12.0-20.0); CO2, Blood 29 mmol/L (21-32); Chloride, Blood 100 mmol/L (98-108); Creatinine, Blood 2.78 mg/dL (0.40-1.00); Glomerular Filtration Rate 20 (60-); Glucose, Blood 105 mg/dL (70-99); Potassium, Blood 3.9 mmol/L (3.5-5.5); Sodium, Blood 135 mmol/L (136-145)
[2023-03-22 05:49] LABS: Phosphorus, Blood 2.9 mg/dL (2.5-4.9)
--- NOTE | 2023-03-22 06:43 | NUR ---
END OF SHIFT SUMMARY PT A&O x4, VSS. AFEBRILE. PT KIND AND COOPERATIVE WITH CARE PROVIDED. PT REQUESTED APAP FOR GENERALIZED BODY ACHES. PT SLEPT WELL. BREATHES EVEN AND UNLABORED. ACTIVE LISTENING AND THERAPEUTIC COMMUNICATION USED PT BECAME EMOTIONAL AND TEARFUL WHILE DISCUSSING CURRENT CONDITION.
[2023-03-22 08:00] VITALS: BP 112/48
[2023-03-22 12:26] VITALS: BP 151/99
[2023-03-22 15:05] VITALS: BP 136/64
--- NOTE | 2023-03-22 17:31 | NUR ---
PT IS A/OX4, UP IND IN HER ROOM. THE PT APPEARS TO BE BREATHING EASILY ON RA AT THIS TIME. THE PT REPORT FEELING THAT HER CONGESTION IS BREAKING UP AND PRODUCING MORE PHLEM. THE PT WAS MEDICATED FOR BENNETT. THE PT WAS UP WITH THE STRAIGHTEDGE MACHINE OPERATOR HELPER TODAY AND SHOWERED. CALL LIGHT IN REACH. WILL CONTINUE TO MONITOR AND ASSESS FOR CHANGES
[2023-03-22 21:22] VITALS: BP 136/67
[2023-03-23] VITALS (19 sets, daily range): BP systolic 127–180; BP diastolic 52–96
[2023-03-23 09:49] LABS: BASOPHILS ABSOLUTE AUTO 0.08 K/mm3 (0.00-0.23); BASOPHILS PERCENT AUTO 1 % (0-2); EOSINOPHILS ABSOLUTE AUTO 0.41 K/mm3 (0.00-0.68); EOSINOPHILS PERCENT AUTO 4 % (0-6); Hematocrit 27.2 % (33.0-51.0); Hemoglobin 9.1 g/dL (11.5-16.0); IMMATURE GRAN ABSOLUTE AUTO 0.06 K/mm3 (0.00-0.10); IMMATURE GRAN PERCENT AUTO 1 % (0-1); LYMPHOCYTES ABSOLUTE AUTO 1.09 K/mm3 (0.84-5.20); LYMPHOCYTES PERCENT AUTO 10 % (21-46); MONOCYTES PERCENT AUTO 11 % (4-13); Mean Corpuscular HGB 30.7 pg (26.0-34.0); Mean Corpuscular HGB Conc 33.5 g/dL (31.5-36.5); Mean Corpuscular Volume 92 fL (80-100); Mean Platelet Volume 9.5 fL (9.1-12.4); NEUTROPHILS ABSOLUTE AUTO 7.65 K/mm3 (1.96-9.15); NEUTROPHILS PERCENT AUTO 73 % (41-73); Platelet Count 326 K/mm3 (150-400); RDW Coefficient Variation 12.7 % (11.7-14.2); RDW Standard Deviation 42.9 fL (35.1-46.3); Red Blood Cell Count 2.96 M/mm3 (3.80-5.20); White Blood Cell Count 10.49 K/mm3 (4.00-11.30)
[2023-03-23 10:10] LABS: Magnesium, Blood 2.3 mg/dL (1.6-2.4)
[2023-03-23 10:11] LABS: Alanine Aminotransfer (ALT/SGP 13 U/L (12-78); Albumin, Blood 3.1 g/dL (3.4-5.0); Albumin/Globulin Ratio 0.7 (0.8-1.8); Alk Phos 75 U/L (50-136); Anion Gap 9 mmol/L (6-16); Aspartate Aminotrans (AST/SGOT 20 U/L (12-37); Bilirubin, Direct <0.1 mg/dL (0.0-0.3); Bilirubin, Indirect Unable to Calculate mg/dL (0.1-0.7); Bilirubin, Total 0.3 mg/dL (0.1-1.0); Blood Urea Nitrogen 49 mg/dL (8-24); Bun/Creatinine Ratio 11.5 (12.0-20.0); CO2, Blood 24 mmol/L (21-32); Calcium, Blood 10.4 mg/dL (8.5-10.1); Chloride, Blood 99 mmol/L (98-108); Creatinine, Blood 4.25 mg/dL (0.40-1.00); Globulin, Blood 4.4 g/dL (2.2-4.0); Glomerular Filtration Rate 12 (60-); Glucose, Blood 150 mg/dL (70-99); Phosphorus, Blood 4.5 mg/dL (2.5-4.9); Potassium, Blood 4.2 mmol/L (3.5-5.5); Sodium, Blood 132 mmol/L (136-145); Total Protein, Blood 7.5 g/dL (6.4-8.2)
--- NOTE | 2023-03-23 10:46 | NUR ---
Pt. is awake in bed and receiving Dialysis. Pt. is unsettled by matters at home with regard to local health department support for her family. Listen with empathy and a caring presence. Re-established rapport. Provided encouragement and tools for self-care. Pt. requested I relay some needs to her nurse. Prayed with Pt. Pt. verbalized gratitude for the spiritual care visit. Relayed Pts. needs to attending nurse.
--- NOTE | 2023-03-23 17:04 | NUR ---
SHIFT SUMMARY PT IS ALERT AND ORIENTED X4. INDEPENDENT IN ROOM. R/A. DIALYSIS IN ROOM TODAY. PT REPORTED FEELING SOMEWHAT DIZZY FOLLOWING DIALYSIS. VITAL SIGNS WERE STABLE. PT DENIES CHEST PAIN AND SOB. INTERMITTENT COUGH. PT IS ANXIOUS ABOUT THE DIAGNOSIS AND EXPRESSED WORRY FOR HER LOVED ONES. NO ACUTE CHANGES THIS SHIFT
--- NOTE | 2023-03-24 02:15 | NUR ---
SHIFT SUMMERY. PT RESTING IN BED. PT VERY ALKATIVE. PT STATED SHE WAS NOT LIKING BEING SHUT AWAY IN ISOLATION. PT SEEMING TO BE HAVING A HARD DAY TODAY. CALL LIGHT IN REACH PT UP AT CHARLY STEADY ON HER FEET.
[2023-03-24 05:30] VITALS: BP 142/71
[2023-03-24 05:59] LABS: Hematocrit 26.1 % (33.0-51.0); Hemoglobin 8.6 g/dL (11.5-16.0)
[2023-03-24 06:26] LABS: Albumin, Blood 2.8 g/dL (3.4-5.0); Anion Gap 8 mmol/L (6-16); Blood Urea Nitrogen 40 mg/dL (8-24); Bun/Creatinine Ratio 11.5 (12.0-20.0); CO2, Blood 26 mmol/L (21-32); Calcium, Blood 9.6 mg/dL (8.5-10.1); Chloride, Blood 103 mmol/L (98-108); Creatinine, Blood 3.48 mg/dL (0.40-1.00); Glomerular Filtration Rate 15 (60-); Glucose, Blood 99 mg/dL (70-99); Magnesium, Blood 2.4 mg/dL (1.6-2.4); Phosphorus, Blood 3.9 mg/dL (2.5-4.9); Potassium, Blood 4.4 mmol/L (3.5-5.5); Sodium, Blood 137 mmol/L (136-145)
[2023-03-24 08:18] VITALS: BP 130/78
[2023-03-24 15:49] VITALS: BP 143/75
--- NOTE | 2023-03-24 15:56 | NUR ---
SHIFT SUMMARY PT IS ALERT AND ORIENTED X4. SHE REPORTED HAVING A GOOD DAY OVERALL. PT DENIES HAVING PAIN OR SOB. INTERMITTENT COUGHING NOTED. SHE WILL PROVIDE A SPUTUM SAMPLE SOON SHE HAS ONE. NO ACUTE CHANGES THROUGHOUT THE SHIFT. SHE SEEMS TO BE IN GOOD SPIRITS.
[2023-03-24 20:52] VITALS: BP 188/63
--- NOTE | 2023-03-25 02:19 | NUR ---
SHIFT JUDY, PT RESTING IN BED, PT BOARD, LONLEY AND VERY ANXIOUS ABOUT HER HEALTH. STAYED WITH PT FOR A WHILE TO TALK SO PT DID NOT FEEL SO ISOLATED, PT REQUESTED SOMETHING TO DRINK AND THEN WAS PLANNING TO GO TO SLEEP. CALL LIGHT IN REACH.
--- NOTE | 2023-03-25 05:20 | NUR ---
PT HAS NEW POWER GLIDE PLACED YESTERDAY SO LABS COULD BE DRAWN WITHOUT BEING STUCK. TRYED MULTIPLE ARM POSITIONS AND HAD PT SIT UP AND LAY DOWN BUT UNABLE TO DRAW LABS, POWER GLIDE FLUSHES WELL BUT DOSE NOT DRAW.
[2023-03-25 05:25] VITALS: BP 172/77
[2023-03-25 05:47] LABS: Hematocrit 25.9 % (33.0-51.0); Hemoglobin 8.4 g/dL (11.5-16.0)
[2023-03-25 06:11] LABS: Albumin, Blood 2.8 g/dL (3.4-5.0); Anion Gap 8 mmol/L (6-16); Blood Urea Nitrogen 56 mg/dL (8-24); Bun/Creatinine Ratio 12.8 (12.0-20.0); CO2, Blood 25 mmol/L (21-32); Calcium, Blood 9.9 mg/dL (8.5-10.1); Chloride, Blood 101 mmol/L (98-108); Creatinine, Blood 4.39 mg/dL (0.40-1.00); Glomerular Filtration Rate 12 (60-); Glucose, Blood 119 mg/dL (70-99); Magnesium, Blood 2.3 mg/dL (1.6-2.4); Phosphorus, Blood 3.8 mg/dL (2.5-4.9); Potassium, Blood 3.9 mmol/L (3.5-5.5); Sodium, Blood 134 mmol/L (136-145)
[2023-03-25 08:17] VITALS: BP 177/63
--- NOTE | 2023-03-25 17:10 | NUR ---
SHIFT SUMMARY: PT A&O X4. PT PLEASANT AND COOPERATIVE WITH CARE. NO ACUTE CHANGES WITH PT THIS SHIFT. PG IN LORI SLIGHTLY TENDER AND DOES NOT DRAW. BOAT DOCK OPERATOR AWARE. PT VERY BORED AND ONLY COMPLAINT WAS HAVING HER FAMILY PAY FOR TB TEST. AWAITING 3 NEGATIVE AFB RESULTS IN ORDER TO D/C. CALL LIGHT IN REACH. WILL CONTINUE TO MONITOR.
[2023-03-25 20:53] VITALS: BP 167/76
[2023-03-25 22:14] VITALS: BP 129/88
[2023-03-25 22:39] VITALS: BP 140/66
[2023-03-26] VITALS (19 sets, daily range): BP systolic 128–211; BP diastolic 56–107
[2023-03-26 07:38] LABS: Hematocrit 26.6 % (33.0-51.0); Hemoglobin 8.9 g/dL (11.5-16.0)
--- NOTE | 2023-03-26 07:48 | NUR ---
SUMMARY PT PLEASANT AND IN NO DISTRESS THIS SHIFT.ISOLATION MAINTAINED.
[2023-03-26 07:53] LABS: Albumin, Blood 2.9 g/dL (3.4-5.0); Anion Gap 7 mmol/L (6-16); Blood Urea Nitrogen 60 mg/dL (8-24); Bun/Creatinine Ratio 11.9 (12.0-20.0); CO2, Blood 24 mmol/L (21-32); Calcium, Blood 10.4 mg/dL (8.5-10.1); Chloride, Blood 103 mmol/L (98-108); Creatinine, Blood 5.05 mg/dL (0.40-1.00); Glomerular Filtration Rate 10 (60-); Glucose, Blood 113 mg/dL (70-99); Magnesium, Blood 2.3 mg/dL (1.6-2.4); Phosphorus, Blood 4.3 mg/dL (2.5-4.9); Potassium, Blood 4.3 mmol/L (3.5-5.5); Sodium, Blood 134 mmol/L (136-145)
--- NOTE | 2023-03-26 16:40 | NUR ---
SHIFT SUMMARY: PT A&O X4. PT PLEASANT AND COOPERATIVE WITH CARE. PT RECEIVED DIALYSIS THIS SHIFT TOLERATED WELL. AFB FROM 03/25 SHOWED FEW AFB. PT EDUCATED ON NEEDING 3 CONSECUTIVE NEGATIVE AFB. PT APPEARED UPSET BUT UNDERSTOOD. HEALTH DEPARTMENT TO DETERMINE NEXT APPROPRIATE AFB RESTART. PT C/O TENDERNESS IN POWERGLIDE. PT MOSTLY C/O "BEING POKED SEVERAL TIMES." BY LAB AND IS UPSET HER POWERGLIDE DOES NOT DRAW. JUVENILE JUSTICE SPECIALIST AWARE. CALL LIGHT IN REACH. BED IN LOWEST POSITION. WILL CONTINUE TO MONITOR.
[2023-03-27 05:19] VITALS: BP 169/79
[2023-03-27 05:54] LABS: Hematocrit 26.7 % (33.0-51.0); Hemoglobin 8.9 g/dL (11.5-16.0)
[2023-03-27 06:40] LABS: Albumin, Blood 3.2 g/dL (3.4-5.0); Anion Gap 7 mmol/L (6-16); Blood Urea Nitrogen 39 mg/dL (8-24); Bun/Creatinine Ratio 10.2 (12.0-20.0); CO2, Blood 28 mmol/L (21-32); Calcium, Blood 10.1 mg/dL (8.5-10.1); Chloride, Blood 99 mmol/L (98-108); Creatinine, Blood 3.82 mg/dL (0.40-1.00); Glomerular Filtration Rate 14 (60-); Glucose, Blood 107 mg/dL (70-99); Magnesium, Blood 2.2 mg/dL (1.6-2.4); Phosphorus, Blood 3.9 mg/dL (2.5-4.9); Potassium, Blood 4.6 mmol/L (3.5-5.5); Sodium, Blood 134 mmol/L (136-145)
--- NOTE | 2023-03-27 07:33 | NUR ---
END OF SHIFT SUMMARY PT KIND AND COOPERATIVE WITH CARE PROVIDED. PT A&O x4, VSS. PT ON AIRBORNE PRECAUTIONS FOR TUBERCULOSIS. PT RECEIVING DIALYSIS ON MWF. NEW ORDER TO D/C POWERGLIDE TO LORI. PT ON ROOM AIR, NO DIFFICULTIES WITH BREATHING. RESP EVEN AND UNLABORED. SPONTANEOUS COUGH PRESENT, SPUTUM SAMPLE CONTAINERS IN ROOM FOR PT TO PROVIDE SAMPLE. THERAPEUTIC COMMUNICATION AND ACTIVE LISTENING PROVIDED. SPENT SOME TIME DISCUSSING PT'S GOALS. CALL LIGHT WITHIN REACH, WCTM.
[2023-03-27 08:29] VITALS: BP 143/68
--- NOTE | 2023-03-27 11:04 | NUR ---
Pt. is awake in bed and welcomes my visit. Pt. is unsettled by a number of cirecumstance primarily regarding her family. Listen with empathy and calming presence. Pt. does display evidence of both loniliness and anxiety. Through theraputic listening Pt. is able to communicate the sources of her concerbs and begins to display evidence of hopeful trust. Prayed for Pt. and the specific circumstances. Pt verbalized gratitude for the spiritual care visit.
[2023-03-27 16:30] VITALS: BP 149/72
--- NOTE | 2023-03-27 19:30 | NUR ---
NO CHANGES, PATIENT VERY ACTIVE AND EDUCATED ABOUT HER CARE AND DIAGNOSIS NEEDS, ALERT AND OREINTED, VERY TALKATIVE, HELPFUL WITH CARE, REPORTED TO LILIANA RN, CALL LIGHT WITH IN REACH
[2023-03-27 21:22] VITALS: BP 170/72
[2023-03-28] VITALS (20 sets, daily range): BP systolic 118–194; BP diastolic 52–116
--- NOTE | 2023-03-28 06:01 | NUR ---
SHIFT SUMMARY- PT HAS HAD NO ACUTE CHHANGE T/O THE NIGHT. SHE SLEPT FROM APPPROXIMATELY 10PM UNTIL AROUND 5AM. PT IN BED, CALL LIGHT IN REACH NO S&S MARLON DISTRESS NOTED.
[2023-03-28 06:06] LABS: BASOPHILS ABSOLUTE AUTO 0.09 K/mm3 (0.00-0.23); BASOPHILS PERCENT AUTO 1 % (0-2); EOSINOPHILS ABSOLUTE AUTO 0.42 K/mm3 (0.00-0.68); EOSINOPHILS PERCENT AUTO 4 % (0-6); Hematocrit 26.7 % (33.0-51.0); Hemoglobin 8.8 g/dL (11.5-16.0); IMMATURE GRAN ABSOLUTE AUTO 0.17 K/mm3 (0.00-0.10); IMMATURE GRAN PERCENT AUTO 2 % (0-1); LYMPHOCYTES ABSOLUTE AUTO 1.32 K/mm3 (0.84-5.20); LYMPHOCYTES PERCENT AUTO 13 % (21-46); MONOCYTES ABSOLUTE AUTO 1.17 K/mm3 (0.16-1.47); MONOCYTES PERCENT AUTO 11 % (4-13); Mean Corpuscular HGB 30.7 pg (26.0-34.0); Mean Corpuscular Volume 93 fL (80-100); Mean Platelet Volume 9.3 fL (9.1-12.4); NEUTROPHILS ABSOLUTE AUTO 7.12 K/mm3 (1.96-9.15); NEUTROPHILS PERCENT AUTO 69 % (41-73); Platelet Count 325 K/mm3 (150-400); RDW Coefficient Variation 12.7 % (11.7-14.2); RDW Standard Deviation 43.3 fL (35.1-46.3); Red Blood Cell Count 2.87 M/mm3 (3.80-5.20); White Blood Cell Count 10.29 K/mm3 (4.00-11.30)
[2023-03-28 06:28] LABS: Albumin, Blood 3.1 g/dL (3.4-5.0); Albumin/Globulin Ratio 0.8 (0.8-1.8); Bilirubin, Total 0.3 mg/dL (0.1-1.0); Bun/Creatinine Ratio 11.9 (12.0-20.0); Calcium, Blood 11.3 mg/dL (8.5-10.1); Creatinine, Blood 5.05 mg/dL (0.40-1.00); Globulin, Blood 3.7 g/dL (2.2-4.0); Potassium, Blood 4.2 mmol/L (3.5-5.5); Total Protein, Blood 6.8 g/dL (6.4-8.2)
--- NOTE | 2023-03-28 09:59 | NUR ---
DIALYSIS IN ROOM NOW, DR GLEASON ROUNDED ON PATIENT EARLY IN AM
--- NOTE | 2023-03-28 19:01 | NUR ---
MAKES NEEDS KNOWN, PATEINT VERY LONELY, TALKATIVE, HARD TO CONSOLE, DR KENT ROUNDED ON PATIENT NO CHANGES, PATIENT STILL HAS NOT HAD A NEGATIVE AFB, DIALYSIS 1000 OFF, ALERT AND OREINTED, CALL LIGHT WITH IN REACH
--- NOTE | 2023-03-29 01:26 | NUR ---
CALLED NIGHT HOSPITALIST- RECIEVED ORDER FOR O2 PRN FOR SOB R/T SMOKE
[2023-03-29 05:45] VITALS: BP 140/61
[2023-03-29 05:46] LABS: BASOPHILS ABSOLUTE AUTO 0.08 K/mm3 (0.00-0.23); BASOPHILS PERCENT AUTO 1 % (0-2); EOSINOPHILS PERCENT AUTO 6 % (0-6); Hematocrit 27.1 % (33.0-51.0); IMMATURE GRAN ABSOLUTE AUTO 0.14 K/mm3 (0.00-0.10); IMMATURE GRAN PERCENT AUTO 2 % (0-1); LYMPHOCYTES ABSOLUTE AUTO 1.17 K/mm3 (0.84-5.20); LYMPHOCYTES PERCENT AUTO 13 % (21-46); MONOCYTES PERCENT AUTO 11 % (4-13); Mean Corpuscular HGB 30.7 pg (26.0-34.0); Mean Corpuscular HGB Conc 33.2 g/dL (31.5-36.5); Mean Corpuscular Volume 93 fL (80-100); Mean Platelet Volume 9.3 fL (9.1-12.4); NEUTROPHILS ABSOLUTE AUTO 6.05 K/mm3 (1.96-9.15); NEUTROPHILS PERCENT AUTO 68 % (41-73); Platelet Count 312 K/mm3 (150-400); RDW Coefficient Variation 12.8 % (11.7-14.2); RDW Standard Deviation 42.2 fL (35.1-46.3); Red Blood Cell Count 2.93 M/mm3 (3.80-5.20); White Blood Cell Count 8.94 K/mm3 (4.00-11.30)
--- NOTE | 2023-03-29 06:05 | NUR ---
SHIFT SUMMARY- PT ALERT, ORIENTED AND INDEPEDNETN IN THE ROOM. PT HAS BEEN PLEASENT AND IN GOOD SPIRITS T/O THE NIGHT. SHE WOKE AT 5AM FOR LAB DRAWS AND REQUESTED A SMALLL COFFEE AND SOME CHEDDAR CHEESE. PT C/O FEELING DIZZY THIS MORNING, VITALS CHECK REVEALED NO DEVIATION FROM PT BASELINE. PT WAS HAVING SOME DIFFICULTY BREATHING LAST NIGHT D/T EXTREME SMOKEY SMELL IN HER ROOM, LIKELY FROM THE WILDFIRES. MAINTENANCE Vascular Closure AIR PURIFYER UP AND IT WAS PLACED IN THE PT ROOM, PT WAS PROVIDED WITH NC AT 2L WHILE ASLEEP. ORDER FROM MD FOR O2 NEEDED FOR SOB. PT IN BED, SITTING UP DRINKING COFFEE NO CURRENT S&S OF DISTRESS NOTED.
[2023-03-29 06:20] LABS: Albumin, Blood 3.2 g/dL (3.4-5.0); Albumin/Globulin Ratio 0.9 (0.8-1.8); Bilirubin, Total 0.2 mg/dL (0.1-1.0); Bun/Creatinine Ratio 11.2 (12.0-20.0); Calcium, Blood 10.4 mg/dL (8.5-10.1); Creatinine, Blood 4.21 mg/dL (0.40-1.00); Globulin, Blood 3.7 g/dL (2.2-4.0); Magnesium, Blood 2.2 mg/dL (1.6-2.4); Phosphorus, Blood 4.9 mg/dL (2.5-4.9); Potassium, Blood 4.1 mmol/L (3.5-5.5); Total Protein, Blood 6.9 g/dL (6.4-8.2)
[2023-03-29 09:02] VITALS: BP 143/68
--- NOTE | 2023-03-29 11:38 | NUR ---
Pt sitting up in bed eating breakfast, a/ox4, pleasant and coopertive with care, follows commands well, denies pain, lungs are clear, dim in bases, resp even and unlabored, no cough noted, hrr, no edema noted, ppp++2, cap refill <3sec, vs stable, afebrile, perma cath to rcw, site is clear and patent, btx4, abd flat softnontender, voids small amount, skin c/w/d, maew, rupesh, call light in reach.
--- NOTE | 2023-03-29 16:21 | NUR ---
Pt. is awake sitting up in bed when she welcomes my visit. Pt. displays evidence of michael and relief and verbalizes that her family had received negative tests results for exposure. Listen with empathy and a celebratory spirit. Pastorally direct the Pt. to a place of thanksgiving. Pt. verbalizes agreement. Facilitate more life review and discuss things that we are both going through. Prayed for Pt. Pt. verbalized gratitude for the spiritual care visit.
[2023-03-29 18:09] VITALS: BP 165/72
--- NOTE | 2023-03-29 19:33 | NUR ---
acute changes this shift, call light in reach.
[2023-03-29 20:02] VITALS: BP 137/50
[2023-03-30] VITALS (23 sets, daily range): BP systolic 90–1968; BP diastolic 31–105
--- NOTE | 2023-03-30 04:10 | NUR ---
SHIFT SUMMARY 47 YR F ADMITTED ON 03/15/23 FOR TB/LANE. FULL CODE. NO ACUTE CHANGES THIS SHIFT. PT IS IN GOOD SPIRITS AND STATED THAT SHE IS COMING TO TERMS WITH BEING IN ISOLATION. SHE APPEARS TO BE KNOWLEDGABLE ABOUT HER CONDITION AND IS PROACTIVE IN HER CARE. SHE IS PLEASANT AND COOPERATIVE. BED IN LOW POSITION AND CALL LIGHT IN REACH.
[2023-03-30 05:41] LABS: BASOPHILS ABSOLUTE AUTO 0.09 K/mm3 (0.00-0.23); BASOPHILS PERCENT AUTO 1 % (0-2); EOSINOPHILS ABSOLUTE AUTO 0.48 K/mm3 (0.00-0.68); EOSINOPHILS PERCENT AUTO 4 % (0-6); Hematocrit 25.7 % (33.0-51.0); Hemoglobin 8.6 g/dL (11.5-16.0); IMMATURE GRAN ABSOLUTE AUTO 0.17 K/mm3 (0.00-0.10); IMMATURE GRAN PERCENT AUTO 2 % (0-1); LYMPHOCYTES PERCENT AUTO 13 % (21-46); MONOCYTES ABSOLUTE AUTO 1.15 K/mm3 (0.16-1.47); MONOCYTES PERCENT AUTO 10 % (4-13); Mean Corpuscular HGB 30.9 pg (26.0-34.0); Mean Corpuscular HGB Conc 33.5 g/dL (31.5-36.5); Mean Corpuscular Volume 92 fL (80-100); Mean Platelet Volume 9.2 fL (9.1-12.4); NEUTROPHILS ABSOLUTE AUTO 7.92 K/mm3 (1.96-9.15); NEUTROPHILS PERCENT AUTO 71 % (41-73); Platelet Count 304 K/mm3 (150-400); RDW Coefficient Variation 12.9 % (11.7-14.2); RDW Standard Deviation 43.1 fL (35.1-46.3); Red Blood Cell Count 2.78 M/mm3 (3.80-5.20); White Blood Cell Count 11.21 K/mm3 (4.00-11.30)
[2023-03-30 06:19] LABS: Albumin, Blood 3.1 g/dL (3.4-5.0); Albumin/Globulin Ratio 0.9 (0.8-1.8); Bilirubin, Total 0.2 mg/dL (0.1-1.0); Bun/Creatinine Ratio 12.2 (12.0-20.0); Calcium, Blood 10.9 mg/dL (8.5-10.1); Creatinine, Blood 5.33 mg/dL (0.40-1.00); Globulin, Blood 3.6 g/dL (2.2-4.0); Magnesium, Blood 2.6 mg/dL (1.6-2.4); Phosphorus, Blood 6.1 mg/dL (2.5-4.9); Potassium, Blood 4.1 mmol/L (3.5-5.5); Total Protein, Blood 6.7 g/dL (6.4-8.2)
--- NOTE | 2023-03-30 16:31 | NUR ---
SHIFT SUMMARY MS CRUZ IS OX4, WELL INFORMED ON HER MEDICATIONS AND MEDICAL CONDITION. BLOOD PRESSURE ELEVATED THIS AM WHICH SHE DID NOT WANT TO TREAT DUE TO HAVING DIALYSIS THIS AFTERNOON. DR GARCIA NOTIFIED THIS AM THAT MS CRUZ PREFERS TO KEEP HER BLOOD PRESSURE ELEVATED ON DIALYSIS DAYS. BLOOD PRESSURE LOW AT LATER PART OF DIALYSIS. R CHEST HEMODIALYSIS CATHETER C,D,I. NO SOB, MILD OCCASIONAL COUGH. NO CHEST PAIN. ON ROOM AIR TODAY. SHE SAID SHE PREFERS TO USE OXYGEN NASAL CANNULA AT NIGHT TIME TO SLEEP. REQUESTING TYLENOL FOR BENNETT AND HAS SOME NAUSEA AFTER DIALYSIS. BED LOW, CALL LIGHT IN REACH.
--- NOTE | 2023-03-30 17:02 | NUR ---
RN NOTE MS CRUZ FELT NAUSEAUS, DIZZY, +BENNETT AFTER DIALYSIS COMPLETED. USING OXYGEN 2L NC FOR COMFORT. SHE VERBALISED UNDERSTANDING NOT TO GET UP BY HERSELF AT THIS TIME. TYLENOL AND PO FLUIDS GIVEN. PT RESTING.
--- NOTE | 2023-03-30 17:26 | NUR ---
DIALYSIS PT HAD AN IMPORTANT PRIVATE CONVERSATION SCHEDULE FOR 1600. ALREADY HAD FIRST AM PT ON, SO I COULDN'T ADJUST. GOT HER ON AT 1328. AT SOME POINT THE OTHER CONSTITUTION PARTY CALLED AND CANCELLED. I WASN'T TOLD AT FIRST, WHEN I FOUND OUT I TRIED TO ADJUST THE TX TO GIVE LONGER. HER BP WAS IN THE 200/ AT THE BEGINING OF TX BUT DROPPED TO 90/ AND SHE BECAME NAUSEATED AND HAD H/A. PT IS VERY SENSITIVE TO BP DROPS AND EASILY BECAMES DIZZY, NAUSEATED, H/A, ETC TOOK PT OFF EARLY. PT RAN 2 HRS AND 24 MIN. UF 500 TRYING FOR 1000 ML.
--- NOTE | 2023-03-30 17:50 | NUR ---
RN NOTE MS CRUZ SAID THAT SHE IS FEELING A LOT BETTER NOW. HEADACHE, NAUSEA AND DIZZYNESS HAVE ALL GONE.
[2023-03-31 03:03] VITALS: BP 115/60
--- NOTE | 2023-03-31 04:18 | NUR ---
SHIFT SUMMARY- PT WAS ANXIOUS AT THE START OF THE SHIFT. VERY SLEEPY AND GROGGY, STATED SHE WAS CONCERNED BECAUSE HER BLOOD PRESSURE WAS SO LOW TODAY AFTER DIALYSIS. SHE ASKED STAFF TO MONITOR HER BP MORE CLOSELY. BP SEEMS TO BE FAIRLY LABILE BUT MOSTLY SOFT COMPARED TO HER BASELINE. [place] HELD FOR SBP LESS THAN 130 PER PARAMETERS. PT HAS SLEPT THROUGHOUT THE NIGHT. DENIES ANY SOB OR CHEST DISCOMFORT.
[2023-03-31 05:12] LABS: Hematocrit 24.5 % (33.0-51.0); Hemoglobin 8.2 g/dL (11.5-16.0)
[2023-03-31 05:23] VITALS: BP 125/63
[2023-03-31 05:30] VITALS: BP 116/56
[2023-03-31 06:03] LABS: Albumin, Blood 3.1 g/dL (3.4-5.0); Anion Gap 6 mmol/L (6-16); Blood Urea Nitrogen 43 mg/dL (8-24); Bun/Creatinine Ratio 11.1 (12.0-20.0); CO2, Blood 28 mmol/L (21-32); Chloride, Blood 96 mmol/L (98-108); Creatinine, Blood 3.89 mg/dL (0.40-1.00); Glomerular Filtration Rate 14 (60-); Glucose, Blood 118 mg/dL (70-99); Magnesium, Blood 2.3 mg/dL (1.6-2.4); Phosphorus, Blood 4.7 mg/dL (2.5-4.9); Potassium, Blood 3.9 mmol/L (3.5-5.5); Sodium, Blood 130 mmol/L (136-145)
[2023-03-31 07:36] VITALS: BP 143/61
[2023-03-31 15:51] VITALS: BP 157/78
--- NOTE | 2023-03-31 16:31 | NUR ---
SHIFT SUMMARY PATIENT IS ALERT AND ORIENTED. PATIENT HAS HAD NO ACUTE EVENTS THIS SHIFT. VITAL SIGNS REVIEWED. PATIENT HAS BEEN IN ISO FOR TB ALL SHIFT. IND IN ROOM. PATIENT HAS BEEN RESTING MOST OF SHIFT. PATIENT HAS BEEN PLEASENT AND COOPERATIVE THIS SHIFT. PATIENTS BP HAS BEEN STABLE AND PATIENT HAS REPORTED FEELING BETTER THIS SHIFT COMPARED TO OVERNIGHT. PATIENT HAS NOT COMPLAINED OF PAIN, NAUSEA SOB OR VOMITTING THIS SHIFT. BED IN LOCKED AND LOWEST POSITION. CALL LIGHT IN PLACE. WILL MONITOR UNTIL SHIFT CHANGE.
[2023-03-31 19:42] VITALS: BP 173/93
[2023-04-01 04:51] VITALS: BP 140/67
--- NOTE | 2023-04-01 05:29 | NUR ---
SHIFT SUMMARY PT IS A&O4, INDEPENDENT IN THE ROOM, RA, VSS, NO COMPLAINTS OF PAIN THIS SHIFT, OR ACUTE OVERNIGHT EVENTS, CONTINUE POC
[2023-04-01 05:35] LABS: Hematocrit 25.7 % (33.0-51.0); Hemoglobin 8.5 g/dL (11.5-16.0)
[2023-04-01 06:00] LABS: Anion Gap 7 mmol/L (6-16); Blood Urea Nitrogen 60 mg/dL (8-24); Bun/Creatinine Ratio 12.2 (12.0-20.0); CO2, Blood 25 mmol/L (21-32); Calcium, Blood 10.3 mg/dL (8.5-10.1); Chloride, Blood 99 mmol/L (98-108); Creatinine, Blood 4.91 mg/dL (0.40-1.00); Glomerular Filtration Rate 10 (60-); Glucose, Blood 149 mg/dL (70-99); Magnesium, Blood 2.5 mg/dL (1.6-2.4); Phosphorus, Blood 4.4 mg/dL (2.5-4.9); Sodium, Blood 131 mmol/L (136-145)
[2023-04-01 07:41] VITALS: BP 121/47
[2023-04-01 09:46] VITALS: BP 148/81
[2023-04-01 12:54] VITALS: BP 180/79
--- NOTE | 2023-04-01 13:23 | NUR ---
PATIENT C/O OF SHARP CHEST PAIN, NOT CURRENTLY PRESENT, DIZZINESS AND NAUSEA. IMPROVED AFTER EATING. VS TAKEN, BP ELEVATED. EF HOSPITALIT NOTIFIED. STAT EKG AND TROPONIN ORDERED. HOSPITALIST AT BEDSIDE TO EVALUTATE ALSO. PATIENT DENIES PAIN AT PRESENT FOR HOSPITALIST ALSO. EKG OBTAINED. ORDER FOR "NO IV" CANCELLED. PATIENT TO HAVE IV FOR BLOOD PRESSURE CONTROL. WILL CONT TO MONITOR.
--- NOTE | 2023-04-01 17:25 | NUR ---
SHIFT SUMMARY PATIENT ALERT AND ORIENTED, ABLE TO MAKE HER NEEDS KNOWN. NO FURTHER COMPLAINTS OF CHEST PAIN THIS SHIFT. EF HOSPITALIST HAS REQUESTED IV TO REMAIN IN PLACE AND BETTER BLOOD PRESSURE CONTROL. IV HYDRALAZINE GIVEN X1 THIS SHIFT. SHE CONTINUES IN ISOLATION AND IS PENDING DISCHARGE ONCE OUTPATIENT DIALYSIS CAN ACCOMODATE HER IN CENTER. SHE IS AN ACTIVE PARTICIPANT IN HER CARE AND ASKS QUESTIONS. PROVIDED OPPORTUNITY FOR QUESTIONS AND CONCNERS AT EACH ENCOUNTER. PATIENT IS INDEPENDENT IN HER ROOM. CALL LIGHT WITHIN REACH, BED LOW AND LOCKED. WILL CONT TO MONITOR AND PROVIDE REPORT TO ONCOMING RN.
[2023-04-01 17:58] VITALS: BP 149/72
[2023-04-01 20:17] VITALS: BP 148/89
[2023-04-02] VITALS (16 sets, daily range): BP systolic 101–175; BP diastolic 48–105
--- NOTE | 2023-04-02 05:01 | NUR ---
SHIFT SUMMARY PT IS A&O4, INDEPENDENT IN THE ROOM, RA, VSS, NO COMPLIANTS OF CHEST PAIN OVERNIGHT, PRN TYLENOL GIVEN PER MAR FOR MILD HEADACHE, NO ACUTE OVERNIGHT EVENTS, CONTINUE POC
[2023-04-02 05:35] LABS: Hemoglobin 8.6 g/dL (11.5-16.0)
[2023-04-02 05:57] LABS: Albumin, Blood 2.9 g/dL (3.4-5.0); Anion Gap 9 mmol/L (6-16); Blood Urea Nitrogen 69 mg/dL (8-24); Bun/Creatinine Ratio 12.7 (12.0-20.0); CO2, Blood 22 mmol/L (21-32); Calcium, Blood 10.7 mg/dL (8.5-10.1); Chloride, Blood 102 mmol/L (98-108); Creatinine, Blood 5.43 mg/dL (0.40-1.00); Glomerular Filtration Rate 9 (60-); Glucose, Blood 138 mg/dL (70-99); Magnesium, Blood 2.4 mg/dL (1.6-2.4); Phosphorus, Blood 5.4 mg/dL (2.5-4.9); Sodium, Blood 133 mmol/L (136-145)
--- NOTE | 2023-04-02 16:54 | NUR ---
SHIFT SUMMARY PT A&OX4 AND PLEASANT. INDPENDENT IN ROOM. NO C/O OF PAIN. PT VERBALIZED FEELING DOWN TODAY D/T BEING IN HOSPITAL FOR SO LONG. SHARON IN TO SEE PT IN THE MORNING. PT HAD DIALYSIS IN ROOM THIS AFTERNOON. TOLERATED WELL. PER PT, FASHION MARKETER STATED PT SHOULD START FIRST SPUTUM CULTURE TESTING ON THE . NO ACUTE CANGES. VSS AFTER DIALYSIS. BED IN LOWEST POSITION AND CALL LIGHT IN REACH.
--- NOTE | 2023-04-03 05:06 | NUR ---
SHIFT SUMMARY PT IS A&O4, INDEPENDENT IN THE ROOM, RA, VSS, PT HAD SOME NAUSEA AND NO VOMITING THIS SHIFT, ZOFRAN ORDERED PER MD GIVEN X1, NO ACUTE OVERNIGHT EVENTS, CONTINUE POC
[2023-04-03 05:37] VITALS: BP 128/57
[2023-04-03 06:18] LABS: Hematocrit 25.6 % (33.0-51.0); Hemoglobin 8.3 g/dL (11.5-16.0)
[2023-04-03 06:38] LABS: Anion Gap 6 mmol/L (6-16); Blood Urea Nitrogen 42 mg/dL (8-24); Bun/Creatinine Ratio 10.5 (12.0-20.0); CO2, Blood 27 mmol/L (21-32); Calcium, Blood 9.7 mg/dL (8.5-10.1); Chloride, Blood 102 mmol/L (98-108); Glomerular Filtration Rate 13 (60-); Glucose, Blood 111 mg/dL (70-99); Magnesium, Blood 2.3 mg/dL (1.6-2.4); Phosphorus, Blood 4.1 mg/dL (2.5-4.9); Sodium, Blood 135 mmol/L (136-145)
[2023-04-03 07:54] VITALS: BP 118/65
[2023-04-03 10:37] VITALS: BP 179/78
[2023-04-03 12:10] VITALS: BP 152/89
--- NOTE | 2023-04-03 16:13 | NUR ---
Pt. is awake and welcomes my visit. Pt. has been in isolation for 12 days. Facilitate review of the past several days. Pt. verbalizes of a positive visit from Father Antonio on Sunday. Pt. verbalizes some anxious concerns. Listen for a long time with empathy and a calming presence with pastoral juvenile counselor given. Pt. displayed evidence of understanding and agreement. Prayed with Pt.
[2023-04-03 16:32] VITALS: BP 151/83
--- NOTE | 2023-04-03 18:13 | NUR ---
SHIFT SUMMARY NO ACUTE CHANGES. PT DID C/O NAUSEA AND WAS MEDICATED PER EMAR WITH GOOD EFFECT. PT WAS ABLE TO REST FOR SOME TIME AND VERBALIZED FEELING BETTER AFTER NAP. SHARON WAS IN TO SEE PT TODAY ANP PT STATED THE VISIT WAS HELPFUL. PT C/O STICHES IN RIGHT SIDE OF NECK FROM PERMACATH REMOVAL. ATTMEPTED TO REMOVE REMAING STITCH BUT WAS UNABLE. DR HUNT NOTIFIED. THIS NURSE ATTEMPTED TO REACH WOUND CARE WITHOUT SUCCESS. DR HUNT STATED HE WOULD LOOK AT NECK TOMORROW IF WOUND CARE WAS UNABLE. BED IN LOWEST POSITION AND CALL LIGHT IN REACH.
[2023-04-03 19:37] VITALS: BP 186/82
[2023-04-04] VITALS (27 sets, daily range): BP systolic 86–180; BP diastolic 53–85
--- NOTE | 2023-04-04 04:09 | NUR ---
SHIFT SUMMARY PATIENT HYPERTENSIVE AT START OF SHIFT 186/82. NOTING BP MED HELD IN AM PER PARAMETERS. SCHEDULE BP MED GIVEN THIS SHIFT AND NOW 138/61. AXOX 4 AND INDEPENDENT IN ROOM. ON ROOM AIR. REPORTED COUGHING EVENT CREATING SORE THROAT. CEPACOL LOZENGERS GIVEN PRN PER EMAR. PERMA CATH RU CHEST INTACT. PIV REMAINS INTACT. DENIES CHEST PAIN, SOB, AND N/V. REPORTS DIALYSIS TODAY 04/04. COOPERATIVE WITH CARE. CALL LIGHT IN REACH. BED IN LOWEST POSITION. WILL CONTINUE TO MONITOR UNTIL DAY SHIFT NURSE ASSUMES CARE.
[2023-04-04 06:16] LABS: Hematocrit 25.6 % (33.0-51.0); Hemoglobin 8.4 g/dL (11.5-16.0)
[2023-04-04 06:56] LABS: Albumin, Blood 3.2 g/dL (3.4-5.0); Albumin/Globulin Ratio 0.9 (0.8-1.8); Bilirubin, Total 0.2 mg/dL (0.1-1.0); Bun/Creatinine Ratio 10.9 (12.0-20.0); C-REACTIVE PROTEIN, EXT RANGE 1.78 mg/dL (0.000-0.300); Calcium, Blood 10.2 mg/dL (8.5-10.1); Creatinine, Blood 4.94 mg/dL (0.40-1.00); Globulin, Blood 3.7 g/dL (2.2-4.0); Magnesium, Blood 2.4 mg/dL (1.6-2.4); Phosphorus, Blood 4.7 mg/dL (2.5-4.9); Potassium, Blood 4.1 mmol/L (3.5-5.5); Total Protein, Blood 6.9 g/dL (6.4-8.2)
--- NOTE | 2023-04-04 11:46 | NUR ---
CALLED TO BEDSIDE. NAUSEA WITH VOMITING. REVIEWING VITALS. BP IS ELEVATED, TACHYCARDIC. NOTIFIED DR. NEWMAN. WILL TREAT WITH ONE TIME HYDRALAZINE 5 MG IV.
--- NOTE | 2023-04-04 18:43 | NUR ---
SHIFT SUMMARY PT HAS REPORTED OVERALL NOT FEELING WELL TODAY. SHE HAS BEEN NAUSEATED AND VERY TIRED. SHE HAS HAD A FLAT AFFECT TODAY WELL. SHE HAD HTN THAT REQUIRED PRN HYDRALAZINE. NO C/O OF PAIN IN CHEST. COUGH NOTED. DIALYSIS TODAY.
--- NOTE | 2023-04-05 04:13 | NUR ---
SHIFT SUMMARY: PT IS ALERT AND ORIENTED. PT IS CALM AND COOPERATIVE WITH CARE. PT CALLS APPROPRIATELY. PT IS INDEPENDENT IN THE ROOM. PT REPORTS NAUSEA NEAR THE START OF SHIFT, GAVE PRN PHENERGAN. PT DENIES PAIN, VOMITING, AND SOB. PT SLEPT MUCH OF THE NIGHT. NO ACUTE CHANGES OR COMPLICATIONS THIS SHIFT. BED IN LOW POSITION, CALL LIGHT WITHIN REACH. WILL CONTINUE TO MONITOR.
[2023-04-05 04:43] VITALS: BP 125/54
[2023-04-05 05:50] LABS: Hematocrit 25.6 % (33.0-51.0); Hemoglobin 8.4 g/dL (11.5-16.0)
[2023-04-05 06:20] LABS: Albumin, Blood 3.3 g/dL (3.4-5.0); Anion Gap 5 mmol/L (6-16); Blood Urea Nitrogen 35 mg/dL (8-24); Bun/Creatinine Ratio 9.6 (12.0-20.0); CO2, Blood 30 mmol/L (21-32); Calcium, Blood 9.4 mg/dL (8.5-10.1); Chloride, Blood 100 mmol/L (98-108); Creatinine, Blood 3.66 mg/dL (0.40-1.00); Glomerular Filtration Rate 15 (60-); Glucose, Blood 96 mg/dL (70-99); Magnesium, Blood 2.1 mg/dL (1.6-2.4); Phosphorus, Blood 3.9 mg/dL (2.5-4.9); Sodium, Blood 135 mmol/L (136-145)
[2023-04-05 07:59] VITALS: BP 148/79
[2023-04-05 17:05] VITALS: BP 147/79
--- NOTE | 2023-04-05 18:38 | NUR ---
SHIFT SUMMARY: PT A/O X 4 IND IN ROOM, PLEASANT AND COOPERATIVE WITH CARE. PT DENIES HAVING PAIN OR NAUSEA TODAY. SHE DID REPORT SOME DIZZINESS WHILE SHOWERING WHICH RESOLVED. PT WAS ABLE TO PRODUCE 2ND SPUTUM SAMPLE TODAY WHICH WAS SENT IN. PT REPORTED SHE WAS DEPRESSED THIS MORNING, DENIES NEEDS OR DESIRE FOR A SPIRITUAL CONSULT. LISTENED EMPATHETICALLY AND PROVIDED EMOTIONAL SUPPORT. PT SLEPT OFF AND ON THROUGH THE DAY. IN THE AFTERNOON PT REPORTED SHE HAD GOOD NEWS FROM HER TRANSPLANT NURSE STATING ONCE SHE GETS OUT OF HOSPITAL SHE WILL NOT BE DELAYED WITH TRANSPLANT DUE TO HER CURRENT SITUATION. PT APPEARED TO BE IN BETTER SPIRITS, SMILING WITH INTERACTION.
[2023-04-05 20:43] VITALS: BP 120/58
[2023-04-06] VITALS (10 sets, daily range): BP systolic 121–168; BP diastolic 65–88
[2023-04-06 07:09] LABS: BASOPHILS ABSOLUTE AUTO 0.09 K/mm3 (0.00-0.23); BASOPHILS PERCENT AUTO 1 % (0-2); EOSINOPHILS ABSOLUTE AUTO 0.48 K/mm3 (0.00-0.68); EOSINOPHILS PERCENT AUTO 5 % (0-6); Hematocrit 27.6 % (33.0-51.0); IMMATURE GRAN ABSOLUTE AUTO 0.08 K/mm3 (0.00-0.10); IMMATURE GRAN PERCENT AUTO 1 % (0-1); LYMPHOCYTES ABSOLUTE AUTO 1.22 K/mm3 (0.84-5.20); LYMPHOCYTES PERCENT AUTO 13 % (21-46); MONOCYTES ABSOLUTE AUTO 1.02 K/mm3 (0.16-1.47); MONOCYTES PERCENT AUTO 11 % (4-13); Mean Corpuscular HGB 31.1 pg (26.0-34.0); Mean Corpuscular HGB Conc 32.6 g/dL (31.5-36.5); Mean Corpuscular Volume 96 fL (80-100); Mean Platelet Volume 9.1 fL (9.1-12.4); NEUTROPHILS ABSOLUTE AUTO 6.65 K/mm3 (1.96-9.15); NEUTROPHILS PERCENT AUTO 70 % (41-73); Platelet Count 286 K/mm3 (150-400); RDW Coefficient Variation 13.9 % (11.7-14.2); RDW Standard Deviation 46.7 fL (35.1-46.3); Red Blood Cell Count 2.89 M/mm3 (3.80-5.20); White Blood Cell Count 9.54 K/mm3 (4.00-11.30)
[2023-04-06 07:32] LABS: Albumin, Blood 3.4 g/dL (3.4-5.0); Albumin/Globulin Ratio 0.9 (0.8-1.8); Bilirubin, Total 0.2 mg/dL (0.1-1.0); Bun/Creatinine Ratio 11.6 (12.0-20.0); Creatinine, Blood 4.74 mg/dL (0.40-1.00); Globulin, Blood 3.9 g/dL (2.2-4.0); Magnesium, Blood 2.5 mg/dL (1.6-2.4); Phosphorus, Blood 5.1 mg/dL (2.5-4.9); Potassium, Blood 4.2 mmol/L (3.5-5.5); Total Protein, Blood 7.3 g/dL (6.4-8.2)
--- NOTE | 2023-04-06 07:58 | NUR ---
RN CALLED EUSEBIA GUILLAUME IN DIALYSIS AND ASKED IF COZAAR SHOULD BE GIVEN OR HELD THIS AM. PT'S DK=334/81. SCRAP PICKER STATED TO HOLD THE MED FOR NOW. PT TO HAVE DIALYSIS THIS AFTERNOON.
--- NOTE | 2023-04-06 11:19 | NUR ---
Pt. is resting but reponds when I enter the room. Pt. is somnolent and unsettled by a difficult interaction with one of the staff earlier in the day. Pt. requested that I pray for her. Prayed for the Pt. Pt. requested a visit on Sunday. Pt. agreed to let me inform Clam Dredger Tim. Pt. verbalized gratitude for the spiritual care vissumat.
--- NOTE | 2023-04-06 18:44 | NUR ---
SUMMARY- NO ACUTE EVENTS THIS SHIFT. PT IS INDEPENDENT IN ROOM. AAOX4. NO CHANGES.
--- NOTE | 2023-04-06 19:50 | NUR ---
HD RN TO PT ROOM MED 335 TO INSTILL CATHFLOW PATENCY SOLUTION ACTIVASE INTO EACH CVC LUMEN. SOLUTION INSTILLED AND DISNFECTING CAPS APPLIED.
[2023-04-07] VITALS (9 sets, daily range): BP systolic 91–189; BP diastolic 65–91
--- NOTE | 2023-04-07 01:54 | NUR ---
PATIENT C / O INCREASING PAIN UPPER CHEST WITH COUGH. TYLENOL WITH CODIENE GIVEN WITH POSITIVE RESULT. HYDRALAZINE 10 MG PER ORDER GIVEN IV FOR SYSTOLIC BP IN 190'S DURING TIME OF INCREASING PAIN. BP CURRENTLY IN 170'S. WILL CONTINUE TO CLOSELY MONITOR.
[2023-04-07 05:32] LABS: Hematocrit 25.9 % (33.0-51.0); Hemoglobin 8.6 g/dL (11.5-16.0)
[2023-04-07 05:48] LABS: Albumin, Blood 3.2 g/dL (3.4-5.0); Anion Gap 3 mmol/L (6-16); Blood Urea Nitrogen 51 mg/dL (8-24); CO2, Blood 29 mmol/L (21-32); Calcium, Blood 9.7 mg/dL (8.5-10.1); Chloride, Blood 102 mmol/L (98-108); Creatinine, Blood 4.64 mg/dL (0.40-1.00); Glomerular Filtration Rate 11 (60-); Glucose, Blood 99 mg/dL (70-99); Magnesium, Blood 2.5 mg/dL (1.6-2.4); Phosphorus, Blood 4.2 mg/dL (2.5-4.9); Potassium, Blood 3.8 mmol/L (3.5-5.5); Sodium, Blood 134 mmol/L (136-145)
--- NOTE | 2023-04-07 06:22 | NUR ---
ALERT, ORIENTED AND INDEPENDENT IN ROOM. SHE DID HAVE AN EPISODE OF HTN WITH A SYSTOLIC NEAR 190 ALONG WITH AN UPPER CHEST AREA THAT PAINED HER UP TO A 9/ WHEN SHE WOULD COUGH. BOTH WERE RESOLVED WITH 10MG IV HYDRALAZINE AND AND ONE TYLENOL WITH CODIENE. AFTER THIS, SHE FELL RIGHT TO SLEEP.
--- NOTE | 2023-04-07 10:22 | NUR ---
TO ROOM 335 @ 0830 FOR EVALUATION OF DIALYSIS CATHETERS PATENCY. ABLE TO FLUSH ARTERIAL LINE EASILY. VENOUS CATHETER DOES NOT FLUSH AT ALL. DR GLEASON NOTIFED. SEE ORDERS. WILL REACTIVIASE AND TRY AGAIN IN THE AM. PT TO HAVE CXRAY. SITE IS CLEAN DRY AND INTACT. CISCO
--- NOTE | 2023-04-07 20:31 | NUR ---
SHIFT SUMMARY- PT HAS HAD NO ACUTE CHANGE TODAY. PT IN BED, CALL LIGHT IN REACH NO S&S OF DISTRESS NOTED. REPORT COMPLETED WITH NIGHT RN NUBIA. PT DIALYSIS CATH WAS NOT WORKING AGAIN TODAY, AN/SSN 2 4 OPERATOR PLACED MORE CATHFLOW. PER VERBAL ORDER FROM AN/SSN [address] GLEASON WANTED A CHEST XR OF THE CATH, ORDER PLACED IN ORDER MANAGEMENT FOR THAT.
[2023-04-08] VITALS (18 sets, daily range): BP systolic 121–186; BP diastolic 61–91
[2023-04-08 05:35] LABS: Hematocrit 25.9 % (33.0-51.0); Hemoglobin 8.4 g/dL (11.5-16.0)
[2023-04-08 05:49] LABS: Albumin, Blood 3.1 g/dL (3.4-5.0); Anion Gap 8 mmol/L (6-16); Blood Urea Nitrogen 59 mg/dL (8-24); Bun/Creatinine Ratio 11.4 (12.0-20.0); CO2, Blood 24 mmol/L (21-32); Calcium, Blood 9.8 mg/dL (8.5-10.1); Chloride, Blood 103 mmol/L (98-108); Creatinine, Blood 5.18 mg/dL (0.40-1.00); Glomerular Filtration Rate 10 (60-); Glucose, Blood 105 mg/dL (70-99); Magnesium, Blood 2.5 mg/dL (1.6-2.4); Phosphorus, Blood 4.8 mg/dL (2.5-4.9); Potassium, Blood 3.8 mmol/L (3.5-5.5); Sodium, Blood 135 mmol/L (136-145)
--- NOTE | 2023-04-08 20:04 | NUR ---
SHIFT SUMMARY- P HAS HAD NO ACUTE CHANGE T/O THE SHIFT. SHE DID HAVE DIALYSIS TODAY AND AT THE END OF THE SHIFT HER BP WAS 120'S SHE DID RECIEVE HER MIDODRENE AT THAT TIME. PASSED ON TO NIGHT RN IN REPORT.
[2023-04-09 04:16] VITALS: BP 104/62
[2023-04-09 05:58] LABS: Hematocrit 26.2 % (33.0-51.0); Hemoglobin 8.7 g/dL (11.5-16.0)
[2023-04-09 06:19] LABS: Albumin, Blood 3.3 g/dL (3.4-5.0); Anion Gap 6 mmol/L (6-16); Blood Urea Nitrogen 32 mg/dL (8-24); Bun/Creatinine Ratio 8.8 (12.0-20.0); CO2, Blood 29 mmol/L (21-32); Calcium, Blood 9.4 mg/dL (8.5-10.1); Chloride, Blood 101 mmol/L (98-108); Creatinine, Blood 3.64 mg/dL (0.40-1.00); Glomerular Filtration Rate 15 (60-); Glucose, Blood 90 mg/dL (70-99); Magnesium, Blood 2.3 mg/dL (1.6-2.4); Phosphorus, Blood 3.7 mg/dL (2.5-4.9); Sodium, Blood 136 mmol/L (136-145)
[2023-04-09 07:40] VITALS: BP 124/55
--- NOTE | 2023-04-09 07:41 | NUR ---
KRISTY GOT TO TAKE A SHOWER LAST NIGHT. AGAIN, SHE HAD NO COMPLAINTS OR INDICATIONS OF DISCOMFORT OVERNIGHT. SHE IS HOWEVER VERY ANXIOUS TO GET OUT OF HER LONG ISOLATION FOR TB, AND IS ASKING HOW LONG THE TESTING WILL TAKE.. THINKS DIALYSIS TODAY
--- NOTE | 2023-04-09 10:12 | NUR ---
ASSUMED CARE OF PT. PT A&OX4, AND HAS NO COMPLAINTS OF PAIN. NO ACUTE CONDITIONS AT THIS TIME. VSS. PT LEFT IN A POSITION OF SAFETY WITH BED LOCKED AND IN LOWEST POSITION, NONSKID SOCKS IN PLACE, AND CALL LIGHT WITHIN REACH.
[2023-04-09 12:48] VITALS: BP 161/98
--- NOTE | 2023-04-09 12:53 | NUR ---
PT BP ELEVATED, GIVEN DOSE OF [place] AND WILL RECHECK FOR EFFECTIVENESS.
[2023-04-09 15:28] VITALS: BP 143/71
--- NOTE | 2023-04-09 18:19 | NUR ---
SHIFT SUMMARY NO ACUTE CHANGES IN PT CONDITION DURING SHIFT. LAB REPORTS 2 NEGATIVE SPUTUM SAMPLES FOR AF[employer], 3RD SAMPLE NOT FOUND. 3RD SAMPLE REQUIRED FOR D/C. PT INSTRUCTIONS GIVEN TO COLLECT 3RD SPUTUM SAMPLE.
[2023-04-09 20:00] VITALS: BP 167/65
--- NOTE | 2023-04-09 23:50 | NUR ---
COLLECTED SPUTUM SAMPLE FROM PT AT ABOUT ~2330. CALLED HOSPITALIST OMER TO VERIFY SPECIFIC ORDER NECESSARY TO PROCESS SAMPLE AND ENTERED ORDER. SENT TO LAB.
[2023-04-10] VITALS (16 sets, daily range): BP systolic 121–456; BP diastolic 68–96
--- NOTE | 2023-04-10 03:55 | NUR ---
SHIFT SUMMARY. PT HAS BEEN AWAKE THROUGH MOST OF SHIFT, RESTLESS THUS FAR. PT IS AOX4, PLEASANT, COOPERATIVE WITH CARE. SOMEWHAT FRUSTRATED WITH CURRENT SITUATION. EARLY IN SHIFT DURING MED PASS AND SHIFT ASSESSMENT, PT EXPLAINED HOW SHE SHOULD BE DISCHARGED BY NOW BUT IS NOT YET DUE TO STAFF ERROR IN COLLECTING AND SENDING SPUTUM CULTURE FOR TESTING, PREVENTING HER FROM GETTING A 3RD NEGATIVE TB TEST. PT IS VERY PLEASANT BUT UNDERSTANDABLY FRUSTRATED WITH SITUATION. REQUESTED TO SPEAK WITH HOSPITAL ADMINISTRATIVE ASSISTANT FAITH PILLAI. EXPLAINED THAT WE HAVE 1 CHARGE TONIGHT AND SHE HAS PATIENTS SO SHE IS STRETCHED VERY THIN. PT WAS UNDERSTANDING. AFTER SPEAKING WITH FAITH PT WILL NEED TO WAIT TO DISCUSS WITH HOSPITAL ADMINISTRATIVE ASSISTANT ON DAY SHIFT. SPUTUM CULTURE COLLECTED AND SENT TO LAB EARLY IN SHIFT. OTHERWISE SHIFT HAS BEEN UNREMARKABLE. INDEPENDENT WITHIN ROOM, AOX4, NO COMPLAINTS OF PAIN, CALLS APPROPRIATELY. BED LOCKED IN LOWEST POSITION. CALL LIGHT LEFT WITHIN REACH.
[2023-04-10 06:07] LABS: Hematocrit 27.3 % (33.0-51.0)
[2023-04-10 06:13] LABS: Albumin, Blood 3.5 g/dL (3.4-5.0); Anion Gap 9 mmol/L (6-16); Blood Urea Nitrogen 43 mg/dL (8-24); CO2, Blood 25 mmol/L (21-32); Calcium, Blood 9.8 mg/dL (8.5-10.1); Chloride, Blood 101 mmol/L (98-108); Creatinine, Blood 4.79 mg/dL (0.40-1.00); Glomerular Filtration Rate 11 (60-); Glucose, Blood 118 mg/dL (70-99); Magnesium, Blood 2.4 mg/dL (1.6-2.4); Phosphorus, Blood 4.1 mg/dL (2.5-4.9); Potassium, Blood 3.7 mmol/L (3.5-5.5); Sodium, Blood 135 mmol/L (136-145)
--- NOTE | 2023-04-10 11:33 | NUR ---
SPOKE TO SPOKE TO ABOUT PT'S VOCALIZED CONCERN WITH THE R SIDE OF HER NECK R/T HER DIALYSIS CVC.
--- NOTE | 2023-04-10 16:33 | NUR ---
SHIFT SUMMARY PT A&OX4, PLEASANT, AND COOPERATIVE, VSS, TOLERATING PO, VOIDING, AMB INDEPENDENTLY, AND DENIES PAIN. PT EXPRESSED FRUSTRATION DURING MED PASS ABOUT LOST SPUTUM SAMPLE FROM DAY PRIOR. PT SPOKE WITH NAUMKEAG OPERATOR THIS AM W/ HER FRUSTRATIONS AND CONCERNS. PT HAD DIALYSIS TODAY AND TOLERATED WELL, NO BP DROP REQUIRING AMIODERONE. AWAITING SPUTUM CULTURE RESULT FOR DISCHARGE. CALL LIGHT IS WITHIN REACH AND CALLS APPROPRIATELY.
[2023-04-11 04:47] VITALS: BP 136/66
[2023-04-11 05:32] LABS: Hematocrit 27.1 % (33.0-51.0)
--- NOTE | 2023-04-11 05:43 | NUR ---
SHIFT SUMMARY NO C/O OVERNIGHT. FIRE SAFETY REVIEWED
[2023-04-11 06:00] LABS: Magnesium, Blood 2.3 mg/dL (1.6-2.4)
[2023-04-11 06:54] LABS: Albumin, Blood 3.7 g/dL (3.4-5.0); Blood Urea Nitrogen 34 mg/dL (8-24); Bun/Creatinine Ratio 8.5 (12.0-20.0); CO2, Blood 27 mmol/L (21-32); Calcium, Blood 10.2 mg/dL (8.5-10.1); Creatinine, Blood 4.02 mg/dL (0.40-1.00); Glomerular Filtration Rate 13 (60-); Glucose, Blood 97 mg/dL (70-99); Phosphorus, Blood 3.9 mg/dL (2.5-4.9)
[2023-04-11 07:49] VITALS: BP 160/65
[2023-04-11 14:04] LABS: Anion Gap 6 mmol/L (6-16); Chloride, Blood 103 mmol/L (98-108); Potassium, Blood 4.1 mmol/L (3.5-5.5); Sodium, Blood 136 mmol/L (136-145)
--- NOTE | 2023-04-11 17:59 | NUR ---
NOTE PTE RESTSED MOST OF THE DAY. SHE FELT BETTER THIS AFTERNOON. GOOD APPETITE. NO COUGH. LUNGS SOUND CTA. RA. UP AD CHARLY. DENIED PAIN OR DISCOMFORT. SHE'S JUST TIRED. NO DIALYSIS TODAY. HELD MIDODRINE D/T BP BEING ABOVE 130 MMHG PER HOLDING ORDER. CONTINUE POC.
[2023-04-11 20:42] VITALS: BP 148/69
[2023-04-12] VITALS (19 sets, daily range): BP systolic 108–214; BP diastolic 66–104
--- NOTE | 2023-04-12 04:25 | NUR ---
shift summary. shift has been unremarkable. pt aox4, pleasant, cooperative with care. no complaints of pain. independent within room, continent, room air. still awaiting results of sputum culture. calls appropriately for assistance. bed locked in lowest position. call light left within reach.
[2023-04-12 06:35] LABS: Hematocrit 27.8 % (33.0-51.0)
[2023-04-12 06:52] LABS: Albumin, Blood 3.6 g/dL (3.4-5.0); Anion Gap 8 mmol/L (6-16); Blood Urea Nitrogen 53 mg/dL (8-24); CO2, Blood 24 mmol/L (21-32); Calcium, Blood 10.3 mg/dL (8.5-10.1); Chloride, Blood 103 mmol/L (98-108); Creatinine, Blood 5.29 mg/dL (0.40-1.00); Glomerular Filtration Rate 9 (60-); Glucose, Blood 128 mg/dL (70-99); Magnesium, Blood 2.3 mg/dL (1.6-2.4); Potassium, Blood 4.1 mmol/L (3.5-5.5); Sodium, Blood 135 mmol/L (136-145)
--- NOTE | 2023-04-12 11:25 | NUR ---
TB RESULT PT THIRD RESULT REPORTED. CALLED [facility]. CONFIRMED THAT PT IS TO STAY IN [facility] UNTIL DISCHARGE HOME. PLANNING ON DISCHARGE TOMORROW. CONTINUE POC.
--- NOTE | 2023-04-12 11:26 | NUR ---
VICENTE GILLILAND HAS RECEIVED A PHONE CALL WITH A CHAIR TIME OF SUNDAY. CONTINUE POC.
--- NOTE | 2023-04-12 12:08 | NUR ---
PHARMACY PT MEDICATIONS HAVE BEEN CALLED TO [facility]. THEY WILL ARRIVE AT [facility] AFTER 2PM 04/13/2023. CONTINUE POC.
--- NOTE | 2023-04-12 12:23 | NUR ---
SAFEWAY MEDICATIONS CALLED IN PT TB MEDICATIONS TO SAFEWAY PER DR BONILLA REQUEST. CONTINUE POC.
--- NOTE | 2023-04-12 17:52 | NUR ---
NOTE PT ALERT AND ORIENTED. UP AD CHARLY IN ROOM. SEE NOTES ABOUT DISCHARGE ARRANGEMENTS FOR TOMORROW. CONTINUE POC.
[2023-04-13 04:04] VITALS: BP 150/84
[2023-04-13 06:34] LABS: Hematocrit 25.8 % (33.0-51.0); Hemoglobin 8.6 g/dL (11.5-16.0)
--- NOTE | 2023-04-13 06:43 | NUR ---
SHIFT SUMMARY PRN TYLENOL WITH CODEINE GIVEN X1 WITH POSITIVE EFFECT. FIRE SAFETY REVIEWED. NO IGNTION SOURCES
[2023-04-13 06:50] LABS: Albumin, Blood 3.7 g/dL (3.4-5.0); Anion Gap 8 mmol/L (6-16); Blood Urea Nitrogen 36 mg/dL (8-24); Bun/Creatinine Ratio 8.9 (12.0-20.0); CO2, Blood 27 mmol/L (21-32); Calcium, Blood 9.2 mg/dL (8.5-10.1); Chloride, Blood 100 mmol/L (98-108); Creatinine, Blood 4.03 mg/dL (0.40-1.00); Glomerular Filtration Rate 13 (60-); Glucose, Blood 104 mg/dL (70-99); Magnesium, Blood 2.2 mg/dL (1.6-2.4); Potassium, Blood 3.7 mmol/L (3.5-5.5); Sodium, Blood 135 mmol/L (136-145)
--- NOTE | 2023-04-13 07:19 | NUR ---
Upon patient request, I visit patient. She shares about the good news of possible d/c today to home. She also states her excitement about being reinstated on the transplant list and that she has a friend who is a poitive donor. She talks at length about the family dynamics and yet her michael of being able to return home. I provide therapeutic listening and a prayer and blessing and she responds quite well. She is moved to tears during the prayer and voices that the prayer articulated her thoughts and praise perfectly. She voices gratitude for the visits form spiritual care and mentions Sports Writer Mike's name to pass on her appreciation for the time and care given.
[2023-04-13 08:14] VITALS: BP 129/63
[2023-04-13 13:30] VITALS: BP 143/73
[2023-04-13] MEDS ORDERED: ACET325 PO (13:46)
[2023-04-13] MEDS ORDERED: B-COMPLEX WITH1 EAC2 PO (13:46)
[2023-04-13] MEDS ORDERED: Isoniazid300 MG PO (13:47)
[2023-04-13] MEDS ORDERED: ETHA400 PO (13:47)
[2023-04-13] MEDS ORDERED: PROM25 PO (13:47)
[2023-04-13] MEDS ORDERED: PYRI100 PO (13:48)
[2023-04-13] MEDS ORDERED: PYRA500 PO (13:48)
[2023-04-13] MEDS ORDERED: SEVEC800 PO (13:49)
[2023-04-13] MEDS ORDERED: RIFA300 PO (13:49)
--- NOTE | 2023-04-13 15:22 | NUR ---
DISCHARGE NOTE MS CRUZ WAS DISCHARGED HOME AT 1500HRS. JOIE, PHARMACIST AT [facility] HAS HER MEDICATIONS FOR HER AND WILL SPLIT A 400MG DOSE OF ETHAMBUTOL INTO A PARTIAL DOSE TO MAKE THE 1500MG QOD MEDICATION REQUIREMENT. I SPOKE TO THE PHARMACY AT [facility] AND THAT IS HOW HER MEDICATION WAS GIVEN HERE [facility] DOES NOT CARRY 100MG PILLS. JOIE IS AWWARE THAT MS CRUZ IS BLIND AND DISABLED AND SAID HE WILL PREPARE HER MEDICATIONS FOR HER. SHE WAS DISCHARGED HOME VIA WHEELCHAIR TO HER TAXI RIDE WHO IS BOOKED TO TAKE HER TO THE PHARMACY AND THEN HOME AND PICKED HER UP AT 1505HRS. MS CRUZ VERBALISED UNDERSTANDING OF WRITTEN AND VERBAL DISCHARGE INSTRUCTIONS. SHE WAS DISCHARGED HOME WITH DIALYSIS CATHETER IN PLACE. NO CONCERNS OF PAIN, NO OTHER CONCERNS VOICED.
== END 2023-04-13 15:23 | disposition home or self-care (01) | DRG 177 ==
LOC: ER 14:44 → MEDS 15:59 → ENPENDDIS 04-13 11:20 → MEDS 04-13 15:23
PROVIDERS: Family Medicine; Internal Medicine Critical Care Medicine; Internal Medicine Nephrology; ADMIT Family Medicine
PROC: 5A1D70Z Performance of Urinary Filtration, Intermittent, Less than 6 Hours Per Day (ICD-10-PCS; 2023-03-15)
PROC: 0B9G8ZX Drainage of Left Upper Lung Lobe, Via Natural or Artificial Opening Endoscopic, Diagnostic (ICD-10-PCS; principal; 2023-03-16 15:30)
PROC: 0B9C8ZX Drainage of Right Upper Lung Lobe, Via Natural or Artificial Opening Endoscopic, Diagnostic (ICD-10-PCS; 2023-03-16 15:30)
DX: A15.9 Respiratory tuberculosis unspecified (principal); N18.6 End stage renal disease; E87.1 Hypo-osmolality and hyponatremia; I13.2 Hypertensive heart and chronic kidney disease with heart failure and with stage 5 chronic kidney disease, or end stage renal disease; N04.9 Nephrotic syndrome with unspecified morphologic changes; I50.32 Chronic diastolic (congestive) heart failure; E11.22 Type 2 diabetes mellitus with diabetic chronic kidney disease; D63.1 Anemia in chronic kidney disease; R91.8 Other nonspecific abnormal finding of lung field; B96.89 Other specified bacterial agents as the cause of diseases classified elsewhere; R80.9 Proteinuria, unspecified; E78.5 Hyperlipidemia, unspecified; E83.39 Other disorders of phosphorus metabolism; Z79.01 Long term (current) use of anticoagulants; Z87.891 Personal history of nicotine dependence; Z79.899 Other long term (current) drug therapy; Z20.822 Contact with and (suspected) exposure to COVID-19; Z99.2 Dependence on renal dialysis
CPT/HCPCS: 0241U; 36415; 36593; 71045; 80053; 80069; 82248; 82947; 83735; 84100; 84484; 84703; 85014; 85018; 85025; 85651; 86140; 87015; 87070; 87116; 87205; 87206; 87633; 88104; 88108; 93005; 93010; 93985; 94760; 94762; 99285; A9270; C1751; J0171; J0360; J0881; J1644; J2001; J2250; J2405; J2997; J3010; J7030; P9046; P9047

== ENCOUNTER → 2023-05-07 | Outpatient (CLI) | payer OTHER ==
[~2023-05-07] MED LIST changes: +ACET325 PO; +B-COMPLEX WITH1 EAC2 PO; +ETHA400 PO; +FERSU300 PO; +Isoniazid300 MG PO; +PROM25 PO; +PYRA500 PO; +PYRI100 PO; +RIFA300 PO; +SEVEC800 PO
== END ==
LOC: LAB 12:14 → LAB SHORT 12:14 → LAB FUT 04-23 16:45
DX: A15.9 Respiratory tuberculosis unspecified (principal)
CPT/HCPCS: 87070; 87205

== ENCOUNTER 2023-05-15 16:42 | Emergency (ER) | payer OTHER ==
[~2023-05-15] VITALS: Ht 165.1 cm; Wt 99.8 kg
[2023-05-15 17:42] LABS: BASOPHILS ABSOLUTE AUTO 0.06 K/mm3 (0.00-0.23); BASOPHILS PERCENT AUTO 1 % (0-2); EOSINOPHILS ABSOLUTE AUTO 0.25 K/mm3 (0.00-0.68); EOSINOPHILS PERCENT AUTO 3 % (0-6); Hemoglobin 10.2 g/dL (11.5-16.0); IMMATURE GRAN ABSOLUTE AUTO 0.06 K/mm3 (0.00-0.10); IMMATURE GRAN PERCENT AUTO 1 % (0-1); LYMPHOCYTES ABSOLUTE AUTO 1.09 K/mm3 (0.84-5.20); LYMPHOCYTES PERCENT AUTO 12 % (21-46); MONOCYTES PERCENT AUTO 5 % (4-13); Mean Corpuscular HGB 32.2 pg (26.0-34.0); Mean Corpuscular Volume 95 fL (80-100); Mean Platelet Volume 9.3 fL (9.1-12.4); NEUTROPHILS ABSOLUTE AUTO 7.41 K/mm3 (1.96-9.15); NEUTROPHILS PERCENT AUTO 79 % (41-73); Platelet Count 311 K/mm3 (150-400); RDW Coefficient Variation 14.7 % (11.7-14.2); RDW Standard Deviation 51.2 fL (35.1-46.3); Red Blood Cell Count 3.17 M/mm3 (3.80-5.20); White Blood Cell Count 9.37 K/mm3 (4.00-11.30)
[2023-05-15 18:04] LABS: Albumin, Blood 3.6 g/dL (3.4-5.0); Albumin/Globulin Ratio 0.8 (0.8-1.8); Bilirubin, Total 0.3 mg/dL (0.1-1.0); Bun/Creatinine Ratio 10.5 (12.0-20.0); Calcium, Blood 9.3 mg/dL (8.5-10.1); Globulin, Blood 4.4 g/dL (2.2-4.0); Potassium, Blood 3.5 mmol/L (3.5-5.5)
[2023-05-15 19:23] LABS: Influenza A, PCR NEGATIVE (NEGATIVE); Influenza B, PCR NEGATIVE (NEGATIVE); Resp Syncytial Virus, PCR NEGATIVE (NEGATIVE); SARS-Cov-2 (COVID-19) PCR, MMC NEGATIVE (NEGATIVE)
[2023-05-15 20:21] VITALS: BP 183/80
== END 2023-05-15 20:21 | disposition home or self-care (01) ==
LOC: ER 16:42
PROVIDERS: Emergency Medicine; Physician Assistant
DX: R07.9 Chest pain, unspecified (principal); R10.13 Epigastric pain; R11.2 Nausea with vomiting, unspecified; E11.22 Type 2 diabetes mellitus with diabetic chronic kidney disease; I50.9 Heart failure, unspecified; N18.6 End stage renal disease; Z87.891 Personal history of nicotine dependence; Z20.822 Contact with and (suspected) exposure to COVID-19; Z79.899 Other long term (current) drug therapy; Z99.2 Dependence on renal dialysis
CPT/HCPCS: 0241U; 71046; 80053; 83690; 84484; 85025; 93005; 93010; 96374; 99285-25; A9270; J2405

== ENCOUNTER → 2023-06-20 | Outpatient (CLI) | payer OTHER ==
[~2023-06-20] MED LIST changes: +AURYXIA210 MG PO; +MIDO5 PO
== END ==
LOC: LAB SHORT 13:31 → LAB 13:31
DX: A18.89 Tuberculosis of other sites (principal)
CPT/HCPCS: 87116

== ENCOUNTER 2023-06-25 08:59 | Day surgery (SDC) | payer OTHER ==
[~2023-06-25] VITALS: Ht 157.5 cm; Wt 89.7 kg
--- NOTE | 2023-06-25 10:34 | NUR ---
History, Chart, Medications and Allergies reviewed before start of procedure. Lungs clear T/O to Auscultation. Patient confirms NPO status and agrees with scheduled surgery. Pre-Op teaching done. Pt verbalizes understanding. Patient States Post-Procedure ride home has been arranged. 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 STATES SHE HAS HAD NEGATIVE SPUTUMS SINCE LEAVING THE HOSPITAL. PTS FAMILY ALL TEST AND REVEAL NEGATIVE. PT STATES HER MASS IN HER CHEST IS ALSO SMALLER.
--- NOTE | 2023-06-25 10:58 | NUR ---
06/25/23 1058 Sebastian Barros History, Chart, Medications and Allergies reviewed before start of procedure.MONITOR INTACT WITH CONTINUOUS PULSE OXIMETRY, CONTINUOUS END TITAL CO2, AND INTERMITTENT BLOOD PRESSURE.3-LEAD EKG REVIEWED WITH PHYSICIAN PRIOR TO START OF PROCEDURE.O2 VIA N/C INTACT THROUGHOUT SEDATION/PROCEDURE.See Anesthesia record.
[2023-06-25 11:48] VITALS: BP 132/76
[2023-06-25 12:00] VITALS: BP 150/91
--- NOTE | 2023-06-25 12:08 | NUR ---
TOLERATING CLEAR LIQUID. PATIENT HAS RIDE ARRNAGED WITH YANELIQUA TRANSIT.
[2023-06-25 12:15] VITALS: BP 176/76
--- NOTE | 2023-06-25 12:25 | NUR ---
Discharge instructions reviewed with patient. Patient verbalizes understanding. Copy given to patient to take home. Patient up to dress with steady gait. Denies dizziness. No c/o verbalized. Denies pain and nausea. Patient instructed to keep her follow-up appointment and she agrees to this.
== END 2023-06-25 12:31 | disposition home or self-care (01) ==
LOC: ORSCMMR 08:59 → ORD 10:00 → ORSCMMR 11:00 → ORD 11:00 → ORSCMMR 12:31
PROVIDERS: Internal Medicine Gastroenterology
PROC: 0DBP8ZX Excision of Rectum, Via Natural or Artificial Opening Endoscopic, Diagnostic (ICD-10-PCS; principal; 2023-06-25 10:00)
PROC: 0DBN8ZX Excision of Sigmoid Colon, Via Natural or Artificial Opening Endoscopic, Diagnostic (ICD-10-PCS; principal; 2023-06-25 10:00)
PROC: 0DBM8ZX Excision of Descending Colon, Via Natural or Artificial Opening Endoscopic, Diagnostic (ICD-10-PCS; principal; 2023-06-25 10:00)
DX: Z12.11 Encounter for screening for malignant neoplasm of colon (principal); D12.4 Benign neoplasm of descending colon; D12.5 Benign neoplasm of sigmoid colon; K62.1 Rectal polyp; K64.8 Other hemorrhoids; Z80.0 Family history of malignant neoplasm of digestive organs; E66.01 Morbid (severe) obesity due to excess calories; Z68.41 Body mass index [BMI] 40.0-44.9, adult; E11.22 Type 2 diabetes mellitus with diabetic chronic kidney disease; I12.0 Hypertensive chronic kidney disease with stage 5 chronic kidney disease or end stage renal disease; N18.6 End stage renal disease; Z99.2 Dependence on renal dialysis; I10 Essential (primary) hypertension; Z79.899 Other long term (current) drug therapy
CPT/HCPCS: 82947; 88305; J2405; J2704; J7030; J7120

== ENCOUNTER → 2023-07-02 | Outpatient (CLI) | payer MEDICARE, OTHER | LOC: LAB 08:45 → LAB SHORT 08:45 | DX: A18.89 Tuberculosis of other sites (principal) | CPT/HCPCS: 87116 ==

== ENCOUNTER → 2023-07-04 | Outpatient (CLI) | payer MEDICARE, OTHER | LOC: LAB SHORT 13:10 → LAB 13:10 | DX: L28.1 Prurigo nodularis (principal) | CPT/HCPCS: 88305; 88312 ==